=== PATIENT | male | born 1995 | race American Indian/Alaskan Native ===

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

== ENCOUNTER 2017-11-15 20:36 | Emergency (ER) | payer MEDICAID, OTHER ==
[2017-11-15 20:43] VITALS: BP 183/102
[2017-11-15] MEDS ORDERED: Ondansetron 4 MG Tab.DIS PO ONE (20:47)
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
[2017-11-15 21:28] LABS: CHLORIDE,CL 96 mmol/L (101-111); SODIUM,NA 135 mmol/L (135-145)
== END 2017-11-15 22:01 | disposition home or self-care (01) ==
LOC: DL.ED 20:36
DX: R10.13 Epigastric pain (principal); R11.10 Vomiting, unspecified; F17.210 Nicotine dependence, cigarettes, uncomplicated
CPT/HCPCS: 36415; 80053; 82150; 83690; 85025; 99283; A9270

== ENCOUNTER 2019-03-23 11:44 | Emergency (ER) | payer MEDICAID, OTHER ==
[2019-03-23] MEDS ORDERED: LORazepam 2 MG/ML Syringe IVPUSH ONE (12:06)
[2019-03-23] MEDS ORDERED: Nitroglycerin 0.4 MG Tab.SL SL ONE (12:13)
[2019-03-23 12:27] LABS: ANION GAP 19.2; CHLORIDE,CL 99 mmol/L (101-111); SODIUM,NA 137 mmol/L (135-145)
[2019-03-23] MEDS ORDERED: Potassium Chloride 10 MEQ Tab.ER PO ONE (12:30)
[2019-03-23] MEDS ORDERED: Metoprolol Tartrate 5 MG/5 ML SDV IVPUSH ONE ×2 (12:58→13:41)
[2019-03-23] MEDS ORDERED: amLODIPine 5 MG Tab PO ONE (15:00)
--- NOTE | 2019-03-23 16:51 | EDM.PDOC ---
Scribed by Mandi Parker 03/23/19 [id number] for Radha Carmona NP ED HPI GENERAL MEDICAL PROBLEM - General Chief Complaint: Chest Pain Stated Complaint: UNKNOWN-AMBULANCE Time Seen by Provider: 03/23/19 11:55 Source of Information: Reports: Patient, EMS, EMS Notes Reviewed, RN, RN Notes Reviewed History Limitations: Reports: No Limitations - History of Present Illness INITIAL COMMENTS - FREE TEXT/NARRATIVE: Patient presents to the ER by [facility] with complaint of chest pain and left shoulder pain this A.M. that started suddenly at 09:00 A.M as well as nausea. No medical history. He was given 3 baby aspirin and a sublingual nitroglycerin at 11:35 A.M. His pain is now a 2/10. His blood pressure was 154/104/ Onset: Today Duration: Constant Location: Reports: Chest Quality: Reports: Ache Severity: Moderate Improves with: Reports: None Worsens with: Reports: None Associated Symptoms: Reports: No Other Symptoms Chest Pain Score (Numeric/FACES): 2 - Related Data Allergies Allergy/AdvReac Type Severity Reaction Status Date / Time No Known Allergies Allergy Verified 11/15/17 20:43 Home Meds: Home Meds . [No Known Home Meds] 08/02/16 [History] Past Medical History - Past Health History Medical/Surgical History: Denies Medical/Surgical History HEENT History: Reports: None Cardiovascular History: Reports: None Respiratory History: Reports: None Gastrointestinal History: Reports: None Genitourinary History: Reports: None Musculoskeletal History: Reports: None Neurological History: Reports: None Psychiatric History: Reports: None Endocrine/Metabolic History: Reports: None Hematologic History: Reports: None Immunologic History: Reports: None Oncologic (Cancer) History: Reports: None Dermatologic History: Reports: None - Infectious Disease History Infectious Disease History: Reports: Chicken Pox Social & Family History - Family History Family Medical History: Noncontributory - Tobacco Use Smoking Status *Q: Former Smoker Used Tobacco, but Quit: Yes Month/Year Tobacco Last Used: 2017 - Caffeine Use Caffeine Use: Reports: Soda - Recreational Drug Use Recreational Drug Use: No ED ROS GENERAL - Review of Systems Review Of Systems: ROS reveals no pertinent complaints other than HPI. ED EXAM, GENERAL - Physical Exam Exam: See Below Exam Limited By: No Limitations General Appearance: Other (large obese male) Eye Exam: Bilateral Eye: EOMI, Normal Inspection, PERRL Ears: Normal External Exam, Normal Canal, Hearing Grossly Normal, Normal TMs Nose: Normal Inspection, Normal Mucosa, No Blood Throat/Mouth: Normal Inspection, Normal Lips, Normal Teeth, Normal Gums, Normal Oropharynx, Normal Voice, No Airway Compromise Head: Atraumatic, Normocephalic Neck: Other (large) Respiratory/Chest: No Respiratory Distress, Lungs Clear, Normal Breath Sounds, No Accessory Muscle Use, Chest Non-Tender Cardiovascular: Normal Peripheral Pulses, Regular Rate, Rhythm, No Edema, No Gallop, No JVD, No Murmur, No Rub GI/Abdominal: Normal Bowel Sounds, Soft, Non-Tender, No Organomegaly, No Distention, No Abnormal Bruit, No Mass Back Exam: Normal Inspection, Full Range of Motion, NT Extremities: Normal Inspection, Normal Range of Motion, Non-Tender, Normal Capillary Refill, No Pedal Edema Neurological: Alert, Oriented, CN II-XII Intact, Normal Cognition, Normal Gait, Normal Reflexes, No Motor/Sensory Deficits Psychiatric: Other (anxiety) Skin Exam: Warm, Dry, Intact, Normal Color, No Rash Course - Vital Signs Last Recorded V/S: Last Vital Signs Temp 36.9 C 03/23/19 13:26 Pulse 78 03/23/19 13:50 Resp 22 H 03/23/19 13:26 BP 165/98 H 03/23/19 15:13 Pulse Ox 98 03/23/19 13:26 - Orders/Labs/Meds Orders: Active Orders 24 hr Category Date Time Status EKG 12 Lead [EKG Documentation Completion] [RC] STAT Care 03/23/19 11:56 Active Labs: Laboratory Tests 03/23/19 03/23/19 03/23/19 Range/Units 11:58 11:58 11:58 WBC 8.2 (5.0-10.0) 10^3/uL RBC 5.42 (4.6-6.2) 10^6/uL Hgb 17.3 D (14.0-18.0) g/dL Hct 49.9 (40.0-54.0) % MCV 92.1 (80-100) fL MCH 31.9 (27.0-34.0) pg MCHC 34.7 (33.0-35.0) g/dL Plt Count 281 (150-450) 10^3/uL D-Dimer, Quantitative < 100 (0-400) ng/mL Sodium 137 (135-145) mmol/L Potassium 3.2 L (3.6-5.0) mmol/L Chloride 99 L (101-111) mmol/L Carbon Dioxide 22.0 (21.0-31.0) mmol/L Anion Gap 19.2 BUN 6 L (7-18) mg/dL Creatinine 0.9 (0.6-1.3) mg/dL Est Cr Clr Drug Dosing 137.12 mL/min Estimated GFR (MDRD) > 60 BUN/Creatinine Ratio 6.66 Glucose 115 H (74-105) mg/dL Calcium 9.7 (8.4-10.2) mg/dl Total Bilirubin 1.4 H (0.2-1.0) mg/dL AST 100 H (10-42) IU/L ALT 67 H (10-60) IU/L Alkaline Phosphatase 114 (42-121) IU/L Troponin I 0.00 (0.00-0.08) ng/mL Total Protein 9.0 H (6.7-8.2) g/dl Albumin 4.1 (3.2-5.5) g/dl Globulin 4.9 Albumin/Globulin Ratio 0.84 Urine Color (YELLOW) Urine Appearance (CLEAR) Urine pH (5.0-9.0) Ur Specific [place] (1.005-1.030) Urine Protein (NEGATIVE) Urine Glucose (UA) (NEGATIVE) Urine Ketones (NEGATIVE) Urine Occult Blood (NEGATIVE) Urine Nitrite (NEGATIVE) Urine Bilirubin (NEGATIVE) Urine Urobilinogen (0.2-1.0) mg/dL Ur Leukocyte Esterase (NEGATIVE) Urine RBC /HPF Urine WBC (0-5/HPF) /HPF Ur Epithelial Cells (NOT SEEN) /HPF Urine Bacteria (0-FEW/HPF) /HPF 03/23/19 03/23/19 Range/Units 12:58 16:13 WBC (5.0-10.0) 10^3/uL RBC (4.6-6.2) 10^6/uL Hgb (14.0-18.0) g/dL Hct (40.0-54.0) % MCV (80-100) fL MCH (27.0-34.0) pg MCHC (33.0-35.0) g/dL Plt Count (150-450) 10^3/uL D-Dimer, Quantitative (0-400) ng/mL Sodium (135-145) mmol/L Potassium (3.6-5.0) mmol/L Chloride (101-111) mmol/L Carbon Dioxide (21.0-31.0) mmol/L Anion Gap BUN (7-18) mg/dL Creatinine (0.6-1.3) mg/dL Est Cr Clr Drug Dosing mL/min Estimated GFR (MDRD) BUN/Creatinine Ratio Glucose (74-105) mg/dL Calcium (8.4-10.2) mg/dl Total Bilirubin (0.2-1.0) mg/dL AST (10-42) IU/L ALT (10-60) IU/L Alkaline Phosphatase (42-121) IU/L Troponin I 0.00 (0.00-0.08) ng/mL Total Protein (6.7-8.2) g/dl Albumin (3.2-5.5) g/dl Globulin Albumin/Globulin Ratio Urine Color Dark yellow (YELLOW) Urine Appearance Clear (CLEAR) Urine pH 8.5 (5.0-9.0) Ur Specific [place] 1.020 (1.005-1.030) Urine Protein 30 H (NEGATIVE) Urine Glucose (UA) Negative (NEGATIVE) Urine Ketones Negative (NEGATIVE) Urine Occult Blood Negative (NEGATIVE) Urine Nitrite Negative (NEGATIVE) Urine Bilirubin Small H (NEGATIVE) Urine Urobilinogen 4.0 H (0.2-1.0) mg/dL Ur Leukocyte Esterase Negative (NEGATIVE) Urine RBC 0-5 /HPF Urine WBC Not seen (0-5/HPF) /HPF Ur Epithelial Cells Not seen (NOT SEEN) /HPF Urine Bacteria Not seen (0-FEW/HPF) /HPF Meds: Medications Discontinued Medications Generic Name Dose Route Start Last Admin Trade Name Freq PRN Reason Stop Dose Admin Amlodipine Besylate 5 mg 03/23/19 15:00 03/23/19 15:13 Norvasc PO 03/23/19 15:01 5 mg ONETIME ONE Administration Lorazepam 0.5 mg 03/23/19 12:06 03/23/19 12:11 Ativan IVPUSH 03/23/19 12:07 0.5 mg ONETIME ONE Administration Metoprolol Tartrate 5 mg 03/23/19 12:58 03/23/19 13:05 Lopressor IVPUSH 03/23/19 12:59 5 mg ONETIME ONE Administration Metoprolol Tartrate 5 mg 03/23/19 13:41 03/23/19 13:50 Lopressor IVPUSH 03/23/19 13:42 5 mg ONETIME ONE Administration Nitroglycerin 0.4 mg 03/23/19 12:13 03/23/19 12:16 Nitrostat SL 03/23/19 12:14 0.4 mg ONETIME ONE Administration Potassium Chloride 20 meq 03/23/19 12:30 03/23/19 12:39 Klor-Con 10 PO 03/23/19 12:31 20 meq ONETIME ONE Administration - Radiology Interpretation Free Text/Narrative:: Chest x-ray: Normal. See rad report. - Re-Assessments/Exams Free Text/Narrative Re-Assessment/Exam: 03/23/19 16:45 24 year old male very HTN 197/110 with left mid chest pain and very anxious. EKG NSR non ST elevation. Recieved aspirin by EMS and NTG SL. CP 8/. Given ativian and additional ntg sl and brought BP down 160's syst and more calm with CP 2/10. Gave an additional ntg; so 3 total. CP resolved. BP remained 150-160's syst. Gave total of 10 mg Lopressor and Norvasc po. Troponin x2 4 hours apart negative; D-dimer neg, CMP with elevated LFT's and bili; no abdominal pain with palpation. . Chest Xray normal. This obese male with no hx of CVD or known HTN or DM will f/u with his PCP. Given Rx for metoprolol 25 mg bid and norvasc 5 mg po daily. His BP 140's and he is feeling much better Departure - Departure Time of Disposition: 16:50 Disposition: Home, Self-Care 01 Preliminary Cause of *Q: Sepsis & Multi System Organ Failure Condition: Good Clinical Impression: Obesity (BMI 30-39.9) Hypertension Qualifiers: Hypertension type: essential hypertension Qualified Code(s): I10 - Essential ( primary) hypertension Chest pain Qualifiers: Chest pain type: other chest pain Qualified Code(s): R07.89 - Other chest pain ; R07.8 - Other chest pain Forms: ED Department Discharge Additional Instructions: Make appt with your Primary Care next week. High blood pressure is most likely cause of your chest pain. Negative cardiac work for heart attack presently. We need to keep your blood pressure down with two medications Metoprolol twice a day and amlodipine once a day. You have been given prescriptions. Goal for blood pressure is 110-140/60-80 Have a sleep study done and ordered by your Primary care. If CP returns then return to the ER. - My Orders Last 24 Hours: My Active Orders 03/23/19 11:56 EKG 12 Lead [EKG Documentation Completion] [RC] STAT - Assessment/Plan Last 24 Hours: My Active Orders 03/23/19 11:56 EKG 12 Lead [EKG Documentation Completion] [RC] STAT I have read and agree with the documentation that has been completed regarding this visit. By signing this record, I attest that the documentation was completed in my physical presence and is an accurate record of the encounter.
[2019-03-23 16:56] VITALS: BP 147/98; PULSE 85
== END 2019-03-23 17:11 | disposition home or self-care (01) ==
LOC: DL.ED 11:44
DX: R07.89 Other chest pain (principal); I10 Essential (primary) hypertension; E66.9 Obesity, unspecified; Z87.891 Personal history of nicotine dependence; Z68.35 Body mass index [BMI] 35.0-35.9, adult
CPT/HCPCS: 36415; 71046; 80053; 81001; 84484; 85027; 85379; 93005; 96374; 96375; 96376; 99285; A9270; J2060; J3490

== ENCOUNTER 2019-05-11 14:21 | Emergency (ER) | payer MEDICAID ==
[2019-05-11 14:38] VITALS: BP 164/96
[2019-05-11] MEDS ORDERED: Albuterol 6.7 GM Inhaler INH ONE (14:38)
[2019-05-11 15:05] VITALS: PULSE 77
[2019-05-11 15:15] LABS: ANION GAP 14.5; CHLORIDE,CL 100 mmol/L (101-111); SODIUM,NA 134 mmol/L (135-145)
--- NOTE | 2019-05-11 15:17 | EDM.PDOC ---
Scribed by Mandi Parker 05/11/19 1515 for Jhon Dodge MD ED HPI GENERAL MEDICAL PROBLEM - General Chief Complaint: Chest Pain Stated Complaint: CHEST TIGHTNESS/LEFT PAIN Time Seen by Provider: 05/11/19 14:34 Source of Information: Reports: Patient, RN, RN Notes Reviewed History Limitations: Reports: No Limitations - History of Present Illness INITIAL COMMENTS - FREE TEXT/NARRATIVE: Patient presents to ER with two day history of feeling like needles stabbing in his chest when he is outside. There is also tingling in the chest as well as sharp pain in left chest when he abducts his left arm. He states he is shaky, but is apparently nervous and restless on triage. He is very short of breath he states and has dry cough. Denies edema or sputum production. 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 Onset Date: 05/09/19 Duration: Getting Worse Location: Reports: Chest Quality: Reports: Ache Severity: Moderate Improves with: Reports: None Worsens with: Reports: None Associated Symptoms: Reports: No Other Symptoms Left Chest Pain Score (Numeric/FACES): 3 - Related Data Allergies Allergy/AdvReac Type Severity Reaction Status Date / Time No Known Allergies Allergy Verified 05/11/19 14:34 Home Meds: Home Meds . [No Known Home Meds] 08/02/16 [History] Past Medical History - Past Health History Medical/Surgical History: Denies Medical/Surgical History HEENT History: Reports: None Cardiovascular History: Reports: None Respiratory History: Reports: None Gastrointestinal History: Reports: None Genitourinary History: Reports: None Musculoskeletal History: Reports: None Neurological History: Reports: None Psychiatric History: Reports: None Endocrine/Metabolic History: Reports: None Hematologic History: Reports: None Immunologic History: Reports: None Oncologic (Cancer) History: Reports: None Dermatologic History: Reports: None - Infectious Disease History Infectious Disease History: Reports: Chicken Pox Social & Family History - Family History Family Medical History: Noncontributory - Caffeine Use Caffeine Use: Reports: Soda - Living Situation & Occupation Living situation: Reports: with Family Occupation: Employed ED ROS GENERAL - Review of Systems Review Of Systems: Comprehensive ROS is negative, except as noted in HPI. ED EXAM, GENERAL - Physical Exam Exam: See Below Exam Limited By: No Limitations General Appearance: Alert, WD/WN, No Apparent Distress, Anxious, Obese Eye Exam: Bilateral Eye: Normal Inspection Nose: Normal Inspection, Normal Mucosa, No Blood Throat/Mouth: Normal Inspection, Normal Lips, Normal Teeth, Normal Gums, Normal Oropharynx, Normal Voice, No Airway Compromise Head: Atraumatic, Normocephalic Neck: Normal Inspection, Supple, Non-Tender, Full Range of Motion. No: Lymphadenopathy (L), Lymphadenopathy (R) Respiratory/Chest: No Respiratory Distress, Lungs Clear, Normal Breath Sounds, No Accessory Muscle Use, Chest Non-Tender. No: Crackles, Rales, Rhonchi, Wheezing, Stridor Cardiovascular: Normal Peripheral Pulses, Regular Rate, Rhythm, No Edema GI/Abdominal: Normal Bowel Sounds, Soft, Non-Tender, No Organomegaly, No Distention, No Abnormal Bruit, No Mass Back Exam: Normal Inspection Extremities: Normal Inspection, Normal Range of Motion, Non-Tender, Normal Capillary Refill, No Pedal Edema Neurological: Alert, Oriented, Normal Cognition, Normal Gait, No Motor/Sensory Deficits Psychiatric: Anxious Skin Exam: Warm, Dry EKG INTERPRETATION EKG Date: 05/11/19 Time: 14:40 Rhythm: Other (sinus rhythm) Rate (Beats/Min): 66 [place]: Normal P-Wave: Present QRS: Normal ST-T: Normal QT: Normal Comparison: NA - No Prior EKG Course - Vital Signs Last Recorded V/S: Last Vital Signs Temp 97.9 F 05/11/19 14:34 Pulse 77 05/11/19 15:03 Resp 16 05/11/19 14:34 BP 164/96 H 05/11/19 14:34 Pulse Ox 100 05/11/19 14:34 - Orders/Labs/Meds Orders: Active Orders 24 hr Category Date Time Status EKG 12 Lead [EKG Documentation Completion] [RC] STAT Care 05/11/19 14:38 Active RT Post Treatment Assessment [RC] Click to Edit Care 05/11/19 14:39 Active RT Pre-Treatment Assessment [RC] Click to Edit Care 05/11/19 14:39 Active CBC WITH AUTO DIFF [HEME] Stat Lab 05/11/19 14:47 Results COMPREHENSIVE METABOLIC PN,CMP [CHEM] Stat Lab 05/11/19 14:47 Received D Dimer [D-DIMER QUANTITATIVE] [COAG] Stat Lab 05/11/19 14:47 Received MANUAL DIFFERENTIAL QA/NC [HEME] Stat Lab 05/11/19 14:47 Results TROPONIN I [CHEM] Stat Lab 05/11/19 14:47 Received RT Metered Dose Inhaler Treatment [RESPCARE] Stat Oth 05/11/19 15:06 Active Labs: Laboratory Tests 05/11/19 Range/Units 14:47 WBC 8.7 (5.0-10.0) 10^3/uL RBC 4.93 (4.6-6.2) 10^6/uL Hgb 15.8 D (14.0-18.0) g/dL Hct 45.9 (40.0-54.0) % MCV 93.1 (80-100) fL MCH 32.0 (27.0-34.0) pg MCHC 34.4 (33.0-35.0) g/dL Plt Count 313 (150-450) 10^3/uL Neut % (Auto) 60.7 (42.2-75.2) % Lymph % (Auto) 31.0 (20.5-50.1) % [place] % (Auto) 6.0 (2-8) % Eos % (Auto) 1.7 (1.0-3.0) % Baso % (Auto) 0.6 (0.0-1.0) % Add Manual Diff Yes Meds: Medications Discontinued Medications Generic Name Dose Route Start Last Admin Trade Name Freq PRN Reason Stop Dose Admin Albuterol 6.7 gm 05/11/19 14:38 05/11/19 14:57 Proventil Hfa INH 05/11/19 14:39 2 puff ONETIME ONE Administration - Radiology Interpretation Free Text/Narrative:: XR Chest: no acute process, see Rad. report. Departure - Departure Time of Disposition: 15:14 Disposition: Home, Self-Care 01 Condition: Good Clinical Impression: Cold induced bronchospasm - Discharge Information *PRESCRIPTION DRUG MONITORING PROGRAM REVIEWED*: No *COPY OF PRESCRIPTION DRUG MONITORING REPORT IN PATIENT KIRSTEN: No Instructions: Bronchospasm, Adult Forms: ED Department Discharge Additional Instructions: Use Albuterol inhaler with spacer: 2 puffs every four hours as needed. Avoid cold air exposure as much as possible. Follow up in clinic if needed. - My Orders Last 24 Hours: My Active Orders 05/11/19 14:38 EKG 12 Lead [EKG Documentation Completion] [RC] STAT 05/11/19 14:39 RT Post Treatment Assessment [RC] Click to Edit RT Pre-Treatment Assessment [RC] Click to Edit 05/11/19 14:47 CBC WITH AUTO DIFF [HEME] Stat COMPREHENSIVE METABOLIC PN,CMP [CHEM] Stat D Dimer [D-DIMER QUANTITATIVE] [COAG] Stat MANUAL DIFFERENTIAL QA/NC [HEME] Stat TROPONIN I [CHEM] Stat 05/11/19 15:06 RT Metered Dose Inhaler Treatment [RESPCARE] Stat - Assessment/Plan Last 24 Hours: My Active Orders 05/11/19 14:38 EKG 12 Lead [EKG Documentation Completion] [RC] STAT 05/11/19 14:39 RT Post Treatment Assessment [RC] Click to Edit RT Pre-Treatment Assessment [RC] Click to Edit 05/11/19 14:47 CBC WITH AUTO DIFF [HEME] Stat COMPREHENSIVE METABOLIC PN,CMP [CHEM] Stat D Dimer [D-DIMER QUANTITATIVE] [COAG] Stat MANUAL DIFFERENTIAL QA/NC [HEME] Stat TROPONIN I [CHEM] Stat 05/11/19 15:06 RT Metered Dose Inhaler Treatment [RESPCARE] Stat I have read and agree with the documentation that has been completed regarding this visit. By signing this record, I attest that the documentation was completed in my physical presence and is an accurate record of the encounter.
== END 2019-05-11 15:25 | disposition home or self-care (01) ==
LOC: DL.ED 14:21
DX: J98.01 Acute bronchospasm (principal)
CPT/HCPCS: 36415; 71046; 80053; 84484; 85025; 85379; 93005; 94640; 99285; A9270

== ENCOUNTER 2019-09-17 14:58 | Inpatient (IN) | payer MEDICAID, OTHER ==
--- NOTE | 2019-09-17 15:53 | EDM.PDOC ---
ED HPI GENERAL MEDICAL PROBLEM - General Chief Complaint: Lower Extremity Injury/Pain Stated Complaint: AMBULANCE Time Seen by Provider: 09/17/19 15:35 Source of Information: Reports: Patient History Limitations: Reports: No Limitations - History of Present Illness INITIAL COMMENTS - FREE TEXT/NARRATIVE: This 24 yo male patient was sent to the ED from the [facility] due to bilateral lower extremity weakness and numbness. The patient reports his symptoms started about 5 days ago first in his left leg, then in both knees. The patient reports he has been having increased difficulties moving his legs and has been having increased numbness and tingling in his lower extremities. The patient reports he has not had any recent trauma or injuries to his back or lower extremities. The patient admits to drinking alcohol, but denies using any drugs. The patient has a limited medical history including acne (on Minocycline and Tretinoin) and peripheral neuropathy (diagnosed 3 years ago, but patient reports those symptoms went away within 1-2 weeks of his visit in 2017). The patient denies any family history of similar symptoms. The patient reports he has not taken anything to make his symptoms better. The patient reports his symptoms have gotten so bad that he has been crawling around his home. The patient reports it took him 5-10 minutes to get to the vehicle in order to get into the clinic today. Duration: Day(s): (5), Constant, Getting Worse Location: Reports: Lower Extremity, Left, Lower Extremity, Right Quality: Reports: Ache, Dull, Other (weakness) Severity: Severe Improves with: Reports: None Worsens with: Reports: None Context: Reports: Other Associated Symptoms: Reports: Other Bilateral Lower Leg Pain Score (Numeric/FACES): 8 - Related Data Allergies Allergy/AdvReac Type Severity Reaction Status Date / Time No Known Allergies Allergy Verified 09/17/19 15:10 Home Meds: Home Meds Minocycline [Minocin] 100 mg PO BID 09/17/19 [History] Tretinoin 20 gm TP BEDTIME 09/17/19 [History] Past Medical History - Past Health History Medical/Surgical History: Denies Medical/Surgical History HEENT History: Reports: None Cardiovascular History: Reports: Hypertension Respiratory History: Reports: None Gastrointestinal History: Reports: None Genitourinary History: Reports: None Musculoskeletal History: Reports: None Neurological History: Reports: None Psychiatric History: Reports: None Endocrine/Metabolic History: Reports: None Hematologic History: Reports: None Immunologic History: Reports: None Oncologic (Cancer) History: Reports: None Dermatologic History: Reports: Other (See Below) Other Dermatologic History: acne - Infectious Disease History Infectious Disease History: Reports: Chicken Pox Social & Family History - Family History Family Medical History: Noncontributory - Tobacco Use Smoking Status *Q: Former Smoker Used Tobacco, but Quit: Yes Month/Year Tobacco Last Used: 2017 - Caffeine Use Caffeine Use: Reports: Soda - Alcohol Use Days Per Week of Alcohol Use: 5 Number of Drinks Per Day: 5 Total Drinks Per Week: 25 - Recreational Drug Use Recreational Drug Use: No - Living Situation & Occupation Living situation: Reports: with Family Occupation: Employed Review of Systems - Review of Systems Review Of Systems: Comprehensive ROS is negative, except as noted in HPI. ED EXAM, GENERAL - Physical Exam Exam: See Below Exam Limited By: No Limitations General Appearance: Alert, WD/WN, Moderate Distress, Other (headlice) Eye Exam: Bilateral Eye: EOMI, Normal Inspection, PERRL Ears: Normal External Exam, Normal Canal, Hearing Grossly Normal, Normal TMs Nose: Normal Inspection, Normal Mucosa, No Blood Throat/Mouth: Normal Inspection, Normal Lips, Normal Teeth, Normal Gums, Normal Oropharynx, Normal Voice, No Airway Compromise Head: Other (lice apparent in the patient's hair, acne) Neck: Normal Inspection, Supple, Non-Tender, Full Range of Motion Respiratory/Chest: No Respiratory Distress, Lungs Clear, Normal Breath Sounds, No Accessory Muscle Use, Chest Non-Tender Cardiovascular: Normal Peripheral Pulses, Regular Rate, Rhythm, No Edema, No Gallop, No JVD, No Murmur, No Rub GI/Abdominal: Normal Bowel Sounds, Soft, Non-Tender, No Organomegaly, No Distention, No Abnormal Bruit, No Mass (Male) Exam: Deferred Rectal (Males) Exam: Deferred Back Exam: Normal Inspection, Full Range of Motion, NT Extremities: Other (The patient had difficulties lifting his lower extremities off the hospital bed. The patient denied any back pain with motion of his legs, but reported his legs hurt when he lifted them off the bed. The patient reports feeling in his lower extremities. Pulses were present and equal. ) Neurological: Alert, Oriented, Normal Cognition, Abnormal Gait (The patient had difficulties just moving his lower extremities and was not asked to walk.) Psychiatric: Normal Affect, Normal Mood Skin Exam: Warm, Dry, Intact, Normal Color, No Rash Lymphatic: No Adenopathy Course - Vital Signs Last Recorded V/S: Last Vital Signs Temp 36.8 C 09/17/19 16:34 Pulse 126 H 09/17/19 16:34 Resp 18 09/17/19 16:34 BP 143/57 H 09/17/19 16:34 Pulse Ox 99 09/17/19 16:34 - Orders/Labs/Meds Orders: Active Orders 24 hr Category Date Time Status Admission Diagnosis [ADT] Stat ADT 09/17/19 17:35 Ordered Admission Status [Patient Status] [ADT] Routine ADT 09/17/19 17:35 Ordered Knee 1V or 2V Lt [CR] Urgent Exams 09/17/19 15:59 Ordered Knee 1V or 2V Rt [CR] Urgent Exams 09/17/19 15:59 Ordered CPK [CREATINE KINASE,CK] [CHEM] Stat Lab 09/17/19 17:32 Ordered CULTURE BLOOD [BC] Stat Lab 09/17/19 15:38 Ordered DRUG SCREEN URINE BIORAD [URCHEM] Stat Lab 09/17/19 15:38 Ordered UA RFX HARISH AND CULT IF INDIC [URIN] Urgent Lab 09/17/19 15:38 Ordered Potassium Chloride [KCl 10 MEQ in Water 100 ML] 10 meq Med 09/17/19 16:42 Ordered Premix Bag 1 bag IV ONETIME Sodium Chloride 0.9% [Normal Saline] 1,000 ml Med 09/17/19 16:42 Ordered IV .BOLUS Medication Orders Potassium Chloride 10 meq/ (Premix) 100 mls @ 100 mls/hr IV ONETIME ONE Stop: 09/17/19 17:41 Last Admin: 09/17/19 16:53 Dose: 100 mls/hr Sodium Chloride (Normal Saline) 1,000 mls @ 999 mls/hr IV .BOLUS ONE Stop: 09/17/19 17:42 Last Admin: 09/17/19 16:53 Dose: 999 mls/hr Labs: Laboratory Tests 09/17/19 09/17/19 09/17/19 Range/Units 15:51 15:51 15:51 WBC 21.8 H (5.0-10.0) 10^3/uL RBC 3.35 L (4.6-6.2) 10^6/uL Hgb 11.8 L D (14.0-18.0) g/dL Hct 33.1 L (40.0-54.0) % MCV 98.8 D (80-100) fL MCH 35.2 H (27.0-34.0) pg MCHC 35.6 H (33.0-35.0) g/dL Plt Count 301 (150-450) 10^3/uL Neut % (Auto) 75.9 H (42.2-75.2) % Lymph % (Auto) 10.8 L (20.5-50.1) % [place] % (Auto) 7.1 (2-8) % Eos % (Auto) 5.9 H (1.0-3.0) % Baso % (Auto) 0.3 (0.0-1.0) % Add Manual Diff Yes Neutrophils % (Manual) 62 (42-75) % Band Neutrophils % 8 % Lymphocytes % (Manual) 15 L (20-50) % Monocytes % (Manual) 5 (2-8) % Eosinophils % (Manual) 9 H (1-3) % Metamyelocytes % 1 Toxic Granulation 1+ slight Anisocytosis 1+ slight Sodium (136-145) mmol/L Potassium (3.5-5.1) mmol/L Chloride (98-107) mmol/L Carbon Dioxide (21-32) mmol/L Anion Gap (7-13) mEq/L BUN (7-18) mg/dL Creatinine (0.70-1.30) mg/dL Est Cr Clr Drug Dosing Estimated GFR (MDRD) BUN/Creatinine Ratio (No establ ref range) Glucose (74-99) mg/dL Lactic Acid 5.3 H* (0.4-2.0) mmol/L Uric Acid 7.5 H (3.5-7.2) mg/dL Calcium (8.5-10.1) mg/dL Magnesium 1.7 L (1.8-2.4) mg/dL Total Bilirubin (0.2-1.0) mg/dL AST (15-37) U/L ALT (16-63) U/L Alkaline Phosphatase (46-116) U/L Total Protein (6.4-8.2) g/dL Albumin (3.4-5.0) g/dL Globulin Albumin/Globulin Ratio TSH, Ultra Sensitive 1.31 (0.36-3.74) uIU/mL Ethyl Alcohol 15 (0) mg/dL 09/17/19 Range/Units 15:51 WBC (5.0-10.0) 10^3/uL RBC (4.6-6.2) 10^6/uL Hgb (14.0-18.0) g/dL Hct (40.0-54.0) % MCV (80-100) fL MCH (27.0-34.0) pg MCHC (33.0-35.0) g/dL Plt Count (150-450) 10^3/uL Neut % (Auto) (42.2-75.2) % Lymph % (Auto) (20.5-50.1) % [place] % (Auto) (2-8) % Eos % (Auto) (1.0-3.0) % Baso % (Auto) (0.0-1.0) % Add Manual Diff Neutrophils % (Manual) (42-75) % Band Neutrophils % % Lymphocytes % (Manual) (20-50) % Monocytes % (Manual) (2-8) % Eosinophils % (Manual) (1-3) % Metamyelocytes % Toxic Granulation Anisocytosis Sodium 127 L (136-145) mmol/L Potassium 2.7 L (3.5-5.1) mmol/L Chloride 87 L (98-107) mmol/L Carbon Dioxide 28 (21-32) mmol/L Anion Gap 14.7 H (7-13) mEq/L BUN 5 L (7-18) mg/dL Creatinine 0.88 (0.70-1.30) mg/dL Est Cr Clr Drug Dosing TNP Estimated GFR (MDRD) > 60 BUN/Creatinine Ratio 5.7 (No establ ref range) Glucose 128 H (74-99) mg/dL Lactic Acid (0.4-2.0) mmol/L Uric Acid (3.5-7.2) mg/dL Calcium 8.2 L (8.5-10.1) mg/dL Magnesium (1.8-2.4) mg/dL Total Bilirubin 3.0 H (0.2-1.0) mg/dL AST 72 H (15-37) U/L ALT 28 (16-63) U/L Alkaline Phosphatase 126 H (46-116) U/L Total Protein 8.7 H (6.4-8.2) g/dL Albumin 3.0 L (3.4-5.0) g/dL Globulin 5.7 Albumin/Globulin Ratio 0.53 TSH, Ultra Sensitive (0.36-3.74) uIU/mL Ethyl Alcohol (0) mg/dL Meds: Medications Generic Name Dose Route Start Last Admin Trade Name Freq PRN Reason Stop Dose Admin Potassium Chloride 10 meq/ 100 mls @ 100 mls/hr 09/17/19 16:42 09/17/19 16:53 Premix IV 09/17/19 17:41 100 mls/hr ONETIME ONE Administration Sodium Chloride 1,000 mls @ 999 mls/hr 09/17/19 16:42 09/17/19 16:53 Normal Saline IV 09/17/19 17:42 999 mls/hr .BOLUS ONE Administration Departure - Departure Time of Disposition: 17:40 Disposition: Admitted As Inpatient 68 Condition: Poor Clinical Impression: Hypokalemia, Hyponatremia - Discharge Information *PRESCRIPTION DRUG MONITORING PROGRAM REVIEWED*: Not Applicable *COPY OF PRESCRIPTION DRUG MONITORING REPORT IN PATIENT KIRSTEN: Not Applicable Care Plan Goals: Discussed the patient's history, examination, lab and x-ray results with Dr. Serna. Dr. Serna accepted the patient for continued evaluation and treatment here at [facility]. Sepsis Event Note - Evaluation Sepsis Screening Result: No Definite Risk - Focused Exam Vital Signs: Vital Signs Temp Pulse Resp BP Pulse Ox 09/17/19 16:34 36.8 C 126 H 18 143/57 H 99 09/17/19 15:10 36.3 C 121 H 16 142/61 H 100 Date Exam was Performed: 09/17/19 Time Exam was Performed: 17:39 - My Orders Last 24 Hours: My Active Orders 09/17/19 15:38 CULTURE BLOOD [BC] Stat DRUG SCREEN URINE BIORAD [URCHEM] Stat UA RFX HARISH AND CULT IF INDIC [URIN] Urgent 09/17/19 15:59 Knee 1V or 2V Lt [CR] Urgent Knee 1V or 2V Rt [CR] Urgent 09/17/19 16:42 Potassium Chloride [KCl 10 MEQ in Water 100 ML] 10 meq Premix Bag 1 bag IV ONETIME Sodium Chloride 0.9% [Normal Saline] 1,000 ml IV .BOLUS 09/17/19 17:32 CPK [CREATINE KINASE,CK] [CHEM] Stat 09/17/19 17:35 Admission Diagnosis [ADT] Stat Admission Status [Patient Status] [ADT] Routine - Assessment/Plan Last 24 Hours: My Active Orders 09/17/19 15:38 CULTURE BLOOD [BC] Stat DRUG SCREEN URINE BIORAD [URCHEM] Stat UA RFX HARISH AND CULT IF INDIC [URIN] Urgent 09/17/19 15:59 Knee 1V or 2V Lt [CR] Urgent Knee 1V or 2V Rt [CR] Urgent 09/17/19 16:42 Potassium Chloride [KCl 10 MEQ in Water 100 ML] 10 meq Premix Bag 1 bag IV ONETIME Sodium Chloride 0.9% [Normal Saline] 1,000 ml IV .BOLUS 09/17/19 17:32 CPK [CREATINE KINASE,CK] [CHEM] Stat 09/17/19 17:35 Admission Diagnosis [ADT] Stat Admission Status [Patient Status] [ADT] Routine
[2019-09-17 16:24] LABS: ANION GAP 14.7 mEq/L (7-13); CHLORIDE,CL 87 mmol/L (98-107); SODIUM,NA 127 mmol/L (136-145)
[2019-09-17] MEDS ORDERED: Potassium Chloride 10 MEQ in Premix Bag 1 BAG IV ONE (16:42)
[2019-09-17] MEDS ORDERED: Sodium Chloride 0.9% 1,000 ML IV ONE (16:42)
[2019-09-17] MEDS ORDERED: Ondansetron 4 MG Tab.DIS PO PRN (18:21)
[2019-09-17] MEDS ORDERED: Sodium Chloride 0.9% 10 ML Syringe FLUSH PRN (18:21)
[2019-09-17] MEDS ORDERED: Morphine 2 MG/ML Syringe IVPUSH PRN (18:21)
[2019-09-17] MEDS ORDERED: Ibuprofen 400 MG Tab PO PRN (18:21)
[2019-09-17] MEDS ORDERED: Zolpidem 5 MG Tab PO PRN (18:21)
[2019-09-17] MEDS ORDERED: oxyCODONE 5 MG Tab PO PRN (18:21)
[2019-09-17] MEDS ORDERED: Ondansetron 4 MG/2 ML SDV IVPUSH PRN (18:21)
--- NOTE | 2019-09-17 18:33 | PCM.HP ---
H&P History of Present Illness - General Date of Service: 09/17/19 Admit Problem/Dx: Admission Diagnosis/Problem Admission Diagnosis/Problem Hypokalemia Source of Information: Patient, Provider (ER) - History of Present Illness Initial Comments - Free Text/Narative: 24-year-old gentleman with a history of acne, in the history there is also a few days episode when he had numbness in the lower extremities and was given the diagnosis of peripheral neuropathy. According to patient that resolved within a few days. He has been drinking about 16-32 ounces of "Juice" daily. He says it is about 9 % alcohol content. He has been drinking about half a gallon of water because he heard that that is good for him. He denies using drugs. No smoking. In the past few days prior to admission the patient has been experiencing increasing lower extremity weakness, mostly in the proximal muscles. More and more difficulty standing and walking. There has been associated knee pain, started mostly on the right side than on the left side. No associated swelling, redness. No trauma. He has muscle pain when has to lift the leg or move significantly. No fever, no sick contact. No chills. No shortness of breath, did not experience upper extremity weakness. No seizure No urine, bowel incontinence, no diarrhea Has been only taking acne medication with minocycline and tretinoin. Came to emergency room with increasing complaints of weakness. Bilateral Lower Leg Pain Score (Numeric/FACES): 8 - Related Data Allergies/Adverse Reactions: Allergies Allergy/AdvReac Type Severity Reaction Status Date / Time No Known Allergies Allergy Verified 09/17/19 15:10 Home Medications: Home Meds Minocycline [Minocin] 100 mg PO BID 09/17/19 [History] Tretinoin 20 gm TP BEDTIME 09/17/19 [History] Past Medical History - Past Health History Medical/Surgical History: Denies Medical/Surgical History HEENT History: Reports: None Cardiovascular History: Reports: Hypertension Respiratory History: Reports: None Gastrointestinal History: Reports: None Genitourinary History: Reports: None Musculoskeletal History: Reports: None Neurological History: Reports: None Psychiatric History: Reports: Addiction Endocrine/Metabolic History: Reports: Obesity/BMI 30+ Hematologic History: Reports: None Immunologic History: Reports: None Oncologic (Cancer) History: Reports: None Dermatologic History: Reports: Other (See Below) Other Dermatologic History: acne - Infectious Disease History Infectious Disease History: Reports: Chicken Pox Social & Family History - Family History Family Medical History: Noncontributory - Tobacco Use Smoking Status *Q: Former Smoker Used Tobacco, but Quit: Yes Month/Year Tobacco Last Used: 2017 - Caffeine Use Caffeine Use: Reports: Soda - Alcohol Use Days Per Week of Alcohol Use: 5 Number of Drinks Per Day: 5 Total Drinks Per Week: 25 - Recreational Drug Use Recreational Drug Use: No - Living Situation & Occupation Living situation: Reports: with Family Occupation: Employed H&P Review of Systems - Review of Systems: Review Of Systems: See Below General: Reports: Weakness (Lower extremities). Denies: Fever, Chills, Malaise , Night Sweats Pulmonary: Denies: Shortness of Breath Cardiovascular: Denies: Chest Pain, Palpitations Gastrointestinal: Denies: Abdominal Pain, Constipation, Diarrhea Genitourinary: Denies: Dysuria Psychiatric: Denies: Confusion Neurological: Reports: Difficulty Walking (Due to weakness and knee pain), Gait Disturbance (Due to weakness). Denies: Dizziness, Trouble Speaking Exam - Exam Exam: See Below - Vital Signs Vital Signs: Last Vital Signs Temp 98.3 F 09/17/19 16:34 Pulse 126 H 09/17/19 16:34 Resp 18 09/17/19 16:34 BP 143/57 H 09/17/19 16:34 Pulse Ox 99 09/17/19 16:34 Weight: 229 lb 9.6 oz - Exam General: Alert, Oriented Neck: Supple Lungs: Clear to Auscultation, Normal Respiratory Effort Cardiovascular: Regular Rate, Regular Rhythm GI/Abdominal Exam: Normal Bowel Sounds, Soft, Non-Tender. No: Hepatomegaly Extremities: No Pedal Edema Skin: Warm, Dry Neuro Extensive - Mental Status: Alert, Oriented x3, Normal Mood/Affect Neuro Extensive - Motor, Sensory, Reflexes: Abnormal Motor (Able to lift bilateral lower extremities against gravity). No: Abnormal Reflexes, Dysarthria , Receptive Aphasia, Expressive Aphasia, Abnormal Finger to Nose, Abnormal Light Touch Psychiatric: Alert, Normal Affect, Normal Mood - Patient Data Lab Results Last 24 hrs: Laboratory Results - last 24 hr 09/17/19 09/17/19 09/17/19 Range/Units 15:51 15:51 15:51 WBC 21.8 H (5.0-10.0) 10^3/uL RBC 3.35 L (4.6-6.2) 10^6/uL Hgb 11.8 L D (14.0-18.0) g/dL Hct 33.1 L (40.0-54.0) % MCV 98.8 D (80-100) fL MCH 35.2 H (27.0-34.0) pg MCHC 35.6 H (33.0-35.0) g/dL Plt Count 301 (150-450) 10^3/uL Neut % (Auto) 75.9 H (42.2-75.2) % Lymph % (Auto) 10.8 L (20.5-50.1) % [place] % (Auto) 7.1 (2-8) % Eos % (Auto) 5.9 H (1.0-3.0) % Baso % (Auto) 0.3 (0.0-1.0) % Add Manual Diff Yes Neutrophils % (Manual) 62 (42-75) % Band Neutrophils % 8 % Lymphocytes % (Manual) 15 L (20-50) % Monocytes % (Manual) 5 (2-8) % Eosinophils % (Manual) 9 H (1-3) % Metamyelocytes % 1 Toxic Granulation 1+ slight Anisocytosis 1+ slight Sodium (136-145) mmol/L Potassium (3.5-5.1) mmol/L Chloride (98-107) mmol/L Carbon Dioxide (21-32) mmol/L Anion Gap (7-13) mEq/L BUN (7-18) mg/dL Creatinine (0.70-1.30) mg/dL Est Cr Clr Drug Dosing Estimated GFR (MDRD) BUN/Creatinine Ratio (No establ ref range) Glucose (74-99) mg/dL Lactic Acid 5.3 H* (0.4-2.0) mmol/L Uric Acid 7.5 H (3.5-7.2) mg/dL Calcium (8.5-10.1) mg/dL Magnesium 1.7 L (1.8-2.4) mg/dL Total Bilirubin (0.2-1.0) mg/dL AST (15-37) U/L ALT (16-63) U/L Alkaline Phosphatase (46-116) U/L Creatine Kinase (39-308) U/L Total Protein (6.4-8.2) g/dL Albumin (3.4-5.0) g/dL Globulin Albumin/Globulin Ratio TSH, Ultra Sensitive 1.31 (0.36-3.74) uIU/mL Ethyl Alcohol 15 (0) mg/dL 09/17/19 09/17/19 Range/Units 15:51 15:51 WBC (5.0-10.0) 10^3/uL RBC (4.6-6.2) 10^6/uL Hgb (14.0-18.0) g/dL Hct (40.0-54.0) % MCV (80-100) fL MCH (27.0-34.0) pg MCHC (33.0-35.0) g/dL Plt Count (150-450) 10^3/uL Neut % (Auto) (42.2-75.2) % Lymph % (Auto) (20.5-50.1) % [place] % (Auto) (2-8) % Eos % (Auto) (1.0-3.0) % Baso % (Auto) (0.0-1.0) % Add Manual Diff Neutrophils % (Manual) (42-75) % Band Neutrophils % % Lymphocytes % (Manual) (20-50) % Monocytes % (Manual) (2-8) % Eosinophils % (Manual) (1-3) % Metamyelocytes % Toxic Granulation Anisocytosis Sodium 127 L (136-145) mmol/L Potassium 2.7 L (3.5-5.1) mmol/L Chloride 87 L (98-107) mmol/L Carbon Dioxide 28 (21-32) mmol/L Anion Gap 14.7 H (7-13) mEq/L BUN 5 L (7-18) mg/dL Creatinine 0.88 (0.70-1.30) mg/dL Est Cr Clr Drug Dosing TNP Estimated GFR (MDRD) > 60 BUN/Creatinine Ratio 5.7 (No establ ref range) Glucose 128 H (74-99) mg/dL Lactic Acid (0.4-2.0) mmol/L Uric Acid (3.5-7.2) mg/dL Calcium 8.2 L (8.5-10.1) mg/dL Magnesium (1.8-2.4) mg/dL Total Bilirubin 3.0 H (0.2-1.0) mg/dL AST 72 H (15-37) U/L ALT 28 (16-63) U/L Alkaline Phosphatase 126 H (46-116) U/L Creatine Kinase 51 (39-308) U/L Total Protein 8.7 H (6.4-8.2) g/dL Albumin 3.0 L (3.4-5.0) g/dL Globulin 5.7 Albumin/Globulin Ratio 0.53 TSH, Ultra Sensitive (0.36-3.74) uIU/mL Ethyl Alcohol (0) mg/dL Result Diagrams: 09/17/19 15:51 09/17/19 15:51 - Problem List (1) Hypokalemia SNOMED Code(s): 13451304 ICD Code: E87.6 - HYPOKALEMIA Status: Acute Current Visit: No (2) Hyponatremia SNOMED Code(s): 88503973 ICD Code: E87.1 - HYPO-OSMOLALITY AND HYPONATREMIA Status: Acute Current Visit: No Problem List Initiated/Reviewed/Updated: Yes Orders Last 24hrs: Active Orders 24 hr Category Date Time Status Admission Diagnosis [ADT] Stat ADT 09/17/19 17:35 Ordered Admission Status [Patient Status] [ADT] Routine ADT 09/17/19 17:35 Active Antiembolic Devices [RC] PER UNIT ROUTINE Care 09/17/19 18:23 Ordered Oxygen Therapy [RC] PRN Care 09/17/19 18:21 Ordered Peripheral IV Care [RC] . DIRECTED Care 09/17/19 18:23 Ordered Up With Assistance [RC] ASDIRECTED Care 09/17/19 18:21 Ordered VTE/DVT Education [RC] PER UNIT ROUTINE Care 09/17/19 18:21 Ordered Vital Signs [RC] Q4H Care 09/17/19 18:21 Ordered Regular Diet [DIET] Diet 09/17/19 Breakfast Ordered Knee 1V or 2V Lt [CR] Urgent Exams 09/17/19 15:59 Taken Knee 1V or 2V Rt [CR] Urgent Exams 09/17/19 15:59 Taken BASIC METABOLIC PANEL,BMP [CHEM] AM Lab 09/18/19 05:15 Ordered CBC WITH AUTO DIFF [HEME] AM Lab 09/18/19 05:15 Ordered CPK [CREATINE KINASE,CK] [CHEM] AM Lab 09/18/19 05:11 Ordered CULTURE BLOOD [BC] Stat Lab 09/17/19 15:51 Received DRUG SCREEN URINE BIORAD [URCHEM] Stat Lab 09/17/19 15:38 Ordered HEPATIC FUNCTION PANEL,HFP [CHEM] AM Lab 09/18/19 05:11 Ordered LACTIC ACID [CHEM] AM Lab 09/18/19 05:11 Ordered MAGNESIUM [CHEM] AM Lab 09/18/19 05:11 Ordered PHOSPHORUS [CHEM] AM Lab 09/18/19 05:11 Ordered UA RFX HARISH AND CULT IF INDIC [URIN] Urgent Lab 09/17/19 15:38 Ordered Heparin Sodium Med 09/17/19 22:00 Ordered 5,000 units SUBCUT Q8HR Ibuprofen [Motrin] Med 09/17/19 18:21 Ordered 400 mg PO Q6H PRN Magnesium Oxide Med 09/17/19 19:00 Ordered 250 mg PO BIDM Morphine Med 09/17/19 18:21 Ordered 2 mg IVPUSH Q2H PRN Ondansetron [Zofran ODT] Med 09/17/19 18:21 Ordered 4 mg PO Q6H PRN Ondansetron [Zofran] Med 09/17/19 18:21 Ordered 4 mg IVPUSH Q6H PRN Permethrin Med 09/17/19 18:18 Once 1 gm TOP ONETIME ONE Potassium Chloride [KCl 10 MEQ in Water 100 ML] 10 meq Med 09/17/19 18:15 Ordered Premix Bag 1 bag IV Q2H Sodium Chloride 0.9% @ 100 MLS/HR(1,000ml) Med 09/17/19 18:15 Ordered Sodium Chloride 0.9% [Normal Saline] 1,000 ml IV ASDIRECTED Sodium Chloride 0.9% [Saline Flush] Med 09/17/19 18:21 Ordered 10 ml FLUSH ASDIRECTED PRN Zolpidem [Ambien] Med 09/17/19 18:21 Ordered 5 mg PO BEDTIME PRN oxyCODONE Med 09/17/19 18:21 Ordered 5 mg PO Q4H PRN Antiembolic Hose [OM.PC] Per Unit Routine Oth 09/17/19 18:22 Ordered Peripheral IV Insertion Adult [OM.PC] Routine Oth 09/17/19 18:21 Ordered Resuscitation Status Routine Resus Stat 09/17/19 18:21 Ordered Medication Orders Heparin Sodium (Porcine) (Heparin Sodium) 5,000 units SUBCUT Q8HR [facility] Potassium Chloride 10 meq/ (Premix) 100 mls @ 50 mls/hr IV Q2H [facility] Stop: 09/18/19 06:29 Sodium Chloride (Normal Saline) 1,000 mls @ 100 mls/hr IV ASDIRECTED SMITH Ibuprofen (Motrin) 400 mg PO Q6H PRN PRN Reason: Pain (mild 1-3) Magnesium Oxide (Magnesium Oxide) 250 mg PO BIDM [facility] Stop: 09/18/19 08:01 Morphine Sulfate (Morphine) 2 mg IVPUSH Q2H PRN PRN Reason: Pain (severe 7-10) Ondansetron HCl (Zofran Odt) 4 mg PO Q6H PRN PRN Reason: nausea, able to take PO Ondansetron HCl (Zofran) 4 mg IVPUSH Q6H PRN PRN Reason: Nausea/Vomiting Oxycodone HCl (Oxycodone) 5 mg PO Q4H PRN PRN Reason: Pain (moderate 4-6) Permethrin (Permethrin) 1 gm TOP ONETIME ONE Stop: 09/17/19 18:19 Sodium Chloride (Saline Flush) 10 ml FLUSH ASDIRECTED PRN PRN Reason: Keep Vein Open Zolpidem Tartrate (Ambien) 5 mg PO BEDTIME PRN PRN Reason: Sleep Assessment/Plan Comment:: 89-year-old who presented with increasing lower extremity weakness. This is in the setting of daily alcohol intake, drinking half a gallon of free water for its "beneficial properties" Lower extremity weakness Associated with hyponatremia hypokalemia, elevated lactic acid We will replace electrolytes with IV potassium replace Magnesium Recheck magnesium, potassium, phosphorus in the morning Lactic acidosis Likely due to liver failure, possibly related to myalgia Will hydrate well Recheck in the morning I doubt that this represents infection, sepsis or ischemic changes Abnormal liver enzymes We'll send hepatitis studies Recheck liver enzymes in the morning Hold tretinoin History of alcohol use For potential withdrawal When the patient was brought in by EMS lice was noted Will use permethrin shampoo DVT prophylaxis with subcutaneous heparin
[2019-09-17] MEDS: Potassium Chloride 10 MEQ in Premix Bag 1 BAG IV SCH ×2 (20:11→22:13)
[2019-09-17] MEDS: Sodium Chloride 0.9% 1,000 ML IV SCH (20:13)
[2019-09-17] MEDS: Heparin Sodium 5,000 Units/ML Vial SUBCUT SCH (21:15)
[2019-09-18] MEDS: Potassium Chloride 10 MEQ in Premix Bag 1 BAG IV SCH ×4 (00:18→06:28)
[2019-09-18] MEDS: Sodium Chloride 0.9% 1,000 ML IV SCH (05:59)
[2019-09-18] MEDS: Heparin Sodium 5,000 Units/ML Vial SUBCUT SCH (06:02)
[2019-09-18 07:02] LABS: ANION GAP 13.4 mEq/L (7-13); CHLORIDE,CL 90 mmol/L (98-107); SODIUM,NA 127 mmol/L (136-145)
--- NOTE | 2019-09-18 10:38 | PCM.PN ---
- General Info Date of Service: 09/18/19 Subjective Update: Has been receiving IV potassium throughout the night. Feels somewhat stronger. Has been able to get up from bed to chair.Still moderate to severe lower extremity weakness. No associated urinary burning incontinence or bowel incontinence. There is associated moderate upper thigh muscle pain. Had his hair shampooed. Functional Status: Reports: Pain Controlled, Tolerating Diet - Review of Systems General: Denies: Fever Pulmonary: Denies: Shortness of Breath Cardiovascular: Denies: Chest Pain, Edema Neurological: Denies: Confusion - Patient Data Vitals - Most Recent: Last Vital Signs Temp 98.2 F 09/18/19 08:26 Pulse 106 H 09/18/19 08:26 Resp 20 09/18/19 08:26 BP 138/62 09/18/19 08:26 Pulse Ox 100 09/18/19 08:26 Weight - Most Recent: 227 lb I&O - Last 24 Hours: Intake & Output 09/17/19 09/18/19 09/18/19 22:59 06:59 14:59 Intake Total 1100 360 Balance 1100 360 Lab Results Last 24 Hours: Laboratory Results - last 24 hr 09/17/19 09/17/19 09/17/19 Range/Units 15:51 15:51 15:51 WBC 21.8 H (5.0-10.0) 10^3/uL RBC 3.35 L (4.6-6.2) 10^6/uL Hgb 11.8 L D (14.0-18.0) g/dL Hct 33.1 L (40.0-54.0) % MCV 98.8 D (80-100) fL MCH 35.2 H (27.0-34.0) pg MCHC 35.6 H (33.0-35.0) g/dL Plt Count 301 (150-450) 10^3/uL Neut % (Auto) 75.9 H (42.2-75.2) % Lymph % (Auto) 10.8 L (20.5-50.1) % Eddy % (Auto) 7.1 (2-8) % Eos % (Auto) 5.9 H (1.0-3.0) % Baso % (Auto) 0.3 (0.0-1.0) % Add Manual Diff Yes Neutrophils % (Manual) 62 (42-75) % Band Neutrophils % 8 % Lymphocytes % (Manual) 15 L (20-50) % Monocytes % (Manual) 5 (2-8) % Eosinophils % (Manual) 9 H (1-3) % Metamyelocytes % 1 Toxic Granulation 1+ slight Anisocytosis 1+ slight Sodium (136-145) mmol/L Potassium (3.5-5.1) mmol/L Chloride (98-107) mmol/L Carbon Dioxide (21-32) mmol/L Anion Gap (7-13) mEq/L BUN (7-18) mg/dL Creatinine (0.70-1.30) mg/dL Est Cr Clr Drug Dosing Estimated GFR (MDRD) BUN/Creatinine Ratio (No establ ref range) Glucose (74-99) mg/dL Lactic Acid 5.3 H* (0.4-2.0) mmol/L Uric Acid 7.5 H (3.5-7.2) mg/dL Calcium (8.5-10.1) mg/dL Phosphorus (2.6-4.7) mg/dL Magnesium 1.7 L (1.8-2.4) mg/dL Total Bilirubin (0.2-1.0) mg/dL Direct Bilirubin (0.0-0.2) mg/dL Indirect Bilirubin AST (15-37) U/L ALT (16-63) U/L Alkaline Phosphatase (46-116) U/L Creatine Kinase (39-308) U/L Total Protein (6.4-8.2) g/dL Albumin (3.4-5.0) g/dL Globulin Albumin/Globulin Ratio TSH, Ultra Sensitive 1.31 (0.36-3.74) uIU/mL Urine Color (YELLOW) Urine Appearance (CLEAR) Urine pH (5.0-9.0) Ur Specific [place] (1.005-1.030) Urine Protein (NEGATIVE) Urine Glucose (UA) (NEGATIVE) Urine Ketones (NEGATIVE) Urine Occult Blood (NEGATIVE) Urine Nitrite (NEGATIVE) Urine Bilirubin (NEGATIVE) Urine Urobilinogen (0.2-1.0) mg/dL Ur Leukocyte Esterase (NEGATIVE) U Hyaline Cast (Auto) Urine RBC /HPF Urine WBC (0-5/HPF) /HPF Ur Epithelial Cells (NOT SEEN) /HPF Amorphous Sediment (NOT SEEN) /HPF Urine Bacteria (0-FEW/HPF) /HPF Urine Mucus (NOT SEEN) /LPF Urine Opiates Screen (NEGATIVE) Ur Oxycodone Screen (NEGATIVE) Urine Methadone Screen (NEGATIVE) Ur Barbiturates Screen (NEGATIVE) U Tricyclic Antidepress (NEGATIVE) Ur Phencyclidine Scrn (NEGATIVE) Ur Amphetamine Screen (NEGATIVE) U Methamphetamines Scrn (NEGATIVE) Urine MDMA Screen (NEGATIVE) U Benzodiazepines Scrn (NEGATIVE) Urine Cocaine Screen (NEGATIVE) U Marijuana (THC) Screen (NEGATIVE) Ethyl Alcohol 15 (0) mg/dL 09/17/19 09/17/19 09/18/19 Range/Units 15:51 15:51 00:38 WBC (5.0-10.0) 10^3/uL RBC (4.6-6.2) 10^6/uL Hgb (14.0-18.0) g/dL Hct (40.0-54.0) % MCV (80-100) fL MCH (27.0-34.0) pg MCHC (33.0-35.0) g/dL Plt Count (150-450) 10^3/uL Neut % (Auto) (42.2-75.2) % Lymph % (Auto) (20.5-50.1) % Eddy % (Auto) (2-8) % Eos % (Auto) (1.0-3.0) % Baso % (Auto) (0.0-1.0) % Add Manual Diff Neutrophils % (Manual) (42-75) % Band Neutrophils % % Lymphocytes % (Manual) (20-50) % Monocytes % (Manual) (2-8) % Eosinophils % (Manual) (1-3) % Metamyelocytes % Toxic Granulation Anisocytosis Sodium 127 L (136-145) mmol/L Potassium 2.7 L (3.5-5.1) mmol/L Chloride 87 L (98-107) mmol/L Carbon Dioxide 28 (21-32) mmol/L Anion Gap 14.7 H (7-13) mEq/L BUN 5 L (7-18) mg/dL Creatinine 0.88 (0.70-1.30) mg/dL Est Cr Clr Drug Dosing TNP Estimated GFR (MDRD) > 60 BUN/Creatinine Ratio 5.7 (No establ ref range) Glucose 128 H (74-99) mg/dL Lactic Acid (0.4-2.0) mmol/L Uric Acid (3.5-7.2) mg/dL Calcium 8.2 L (8.5-10.1) mg/dL Phosphorus (2.6-4.7) mg/dL Magnesium (1.8-2.4) mg/dL Total Bilirubin 3.0 H (0.2-1.0) mg/dL Direct Bilirubin (0.0-0.2) mg/dL Indirect Bilirubin AST 72 H (15-37) U/L ALT 28 (16-63) U/L Alkaline Phosphatase 126 H (46-116) U/L Creatine Kinase 51 (39-308) U/L Total Protein 8.7 H (6.4-8.2) g/dL Albumin 3.0 L (3.4-5.0) g/dL Globulin 5.7 Albumin/Globulin Ratio 0.53 TSH, Ultra Sensitive (0.36-3.74) uIU/mL Urine Color Alisha (YELLOW) Urine Appearance Cloudy (CLEAR) Urine pH 5.5 (5.0-9.0) Ur Specific [place] >= 1.030 (1.005-1.030) Urine Protein 30 H (NEGATIVE) Urine Glucose (UA) 100 H (NEGATIVE) Urine Ketones Trace H (NEGATIVE) Urine Occult Blood Negative (NEGATIVE) Urine Nitrite Positive H (NEGATIVE) Urine Bilirubin Large H (NEGATIVE) Urine Urobilinogen >=8.0 H (0.2-1.0) mg/dL Ur Leukocyte Esterase Negative (NEGATIVE) U Hyaline Cast (Auto) Moderate Urine RBC 0-5 /HPF Urine WBC 0-5 (0-5/HPF) /HPF Ur Epithelial Cells Rare (NOT SEEN) /HPF Amorphous Sediment Moderate (NOT SEEN) /HPF Urine Bacteria Rare (0-FEW/HPF) /HPF Urine Mucus Few H (NOT SEEN) /LPF Urine Opiates Screen (NEGATIVE) Ur Oxycodone Screen (NEGATIVE) Urine Methadone Screen (NEGATIVE) Ur Barbiturates Screen (NEGATIVE) U Tricyclic Antidepress (NEGATIVE) Ur Phencyclidine Scrn (NEGATIVE) Ur Amphetamine Screen (NEGATIVE) U Methamphetamines Scrn (NEGATIVE) Urine MDMA Screen (NEGATIVE) U Benzodiazepines Scrn (NEGATIVE) Urine Cocaine Screen (NEGATIVE) U Marijuana (THC) Screen (NEGATIVE) Ethyl Alcohol (0) mg/dL 04/16/20 04/16/20 04/16/20 Range/Units 00:38 06:00 06:00 WBC (5.0-10.0) 10^3/uL RBC (4.6-6.2) 10^6/uL Hgb (14.0-18.0) g/dL Hct (40.0-54.0) % MCV (80-100) fL MCH (27.0-34.0) pg MCHC (33.0-35.0) g/dL Plt Count (150-450) 10^3/uL Neut % (Auto) (42.2-75.2) % Lymph % (Auto) (20.5-50.1) % Eddy % (Auto) (2-8) % Eos % (Auto) (1.0-3.0) % Baso % (Auto) (0.0-1.0) % Add Manual Diff Neutrophils % (Manual) (42-75) % Band Neutrophils % % Lymphocytes % (Manual) (20-50) % Monocytes % (Manual) (2-8) % Eosinophils % (Manual) (1-3) % Metamyelocytes % Toxic Granulation Anisocytosis Sodium 127 L (136-145) mmol/L Potassium 3.4 L (3.5-5.1) mmol/L Chloride 90 L (98-107) mmol/L Carbon Dioxide 27 (21-32) mmol/L Anion Gap 13.4 H (7-13) mEq/L BUN 5 L (7-18) mg/dL Creatinine 0.73 (0.70-1.30) mg/dL Est Cr Clr Drug Dosing 158.73 Estimated GFR (MDRD) > 60 BUN/Creatinine Ratio (No establ ref range) Glucose 110 H (74-99) mg/dL Lactic Acid 3.6 H* (0.4-2.0) mmol/L Uric Acid (3.5-7.2) mg/dL Calcium 7.8 L (8.5-10.1) mg/dL Phosphorus 2.4 L (2.6-4.7) mg/dL Magnesium 1.8 (1.8-2.4) mg/dL Total Bilirubin 3.2 H (0.2-1.0) mg/dL Direct Bilirubin 1.5 H (0.0-0.2) mg/dL Indirect Bilirubin 1.7 AST 56 H (15-37) U/L ALT 23 (16-63) U/L Alkaline Phosphatase 114 (46-116) U/L Creatine Kinase 47 (39-308) U/L Total Protein 7.3 (6.4-8.2) g/dL Albumin 2.5 L (3.4-5.0) g/dL Globulin 4.8 Albumin/Globulin Ratio 0.52 TSH, Ultra Sensitive (0.36-3.74) uIU/mL Urine Color (YELLOW) Urine Appearance (CLEAR) Urine pH (5.0-9.0) Ur Specific [place] (1.005-1.030) Urine Protein (NEGATIVE) Urine Glucose (UA) (NEGATIVE) Urine Ketones (NEGATIVE) Urine Occult Blood (NEGATIVE) Urine Nitrite (NEGATIVE) Urine Bilirubin (NEGATIVE) Urine Urobilinogen (0.2-1.0) mg/dL Ur Leukocyte Esterase (NEGATIVE) U Hyaline Cast (Auto) Urine RBC /HPF Urine WBC (0-5/HPF) /HPF Ur Epithelial Cells (NOT SEEN) /HPF Amorphous Sediment (NOT SEEN) /HPF Urine Bacteria (0-FEW/HPF) /HPF Urine Mucus (NOT SEEN) /LPF Urine Opiates Screen Negative (NEGATIVE) Ur Oxycodone Screen Negative (NEGATIVE) Urine Methadone Screen Negative (NEGATIVE) Ur Barbiturates Screen Negative (NEGATIVE) U Tricyclic Antidepress Negative (NEGATIVE) Ur Phencyclidine Scrn Negative (NEGATIVE) Ur Amphetamine Screen Negative (NEGATIVE) U Methamphetamines Scrn Negative (NEGATIVE) Urine MDMA Screen Negative (NEGATIVE) U Benzodiazepines Scrn Negative (NEGATIVE) Urine Cocaine Screen Negative (NEGATIVE) U Marijuana (THC) Screen Negative (NEGATIVE) Ethyl Alcohol (0) mg/dL 09/18/19 Range/Units 06:00 WBC 20.0 H (5.0-10.0) 10^3/uL RBC 3.14 L (4.6-6.2) 10^6/uL Hgb 11.2 L (14.0-18.0) g/dL Hct 31.5 L (40.0-54.0) % MCV 100.3 H (80-100) fL MCH 35.7 H (27.0-34.0) pg MCHC 35.6 H (33.0-35.0) g/dL Plt Count 274 (150-450) 10^3/uL Neut % (Auto) 75.7 H (42.2-75.2) % Lymph % (Auto) 12.3 L (20.5-50.1) % Eddy % (Auto) 4.9 (2-8) % Eos % (Auto) 6.8 H (1.0-3.0) % Baso % (Auto) 0.3 (0.0-1.0) % Add Manual Diff Neutrophils % (Manual) (42-75) % Band Neutrophils % % Lymphocytes % (Manual) (20-50) % Monocytes % (Manual) (2-8) % Eosinophils % (Manual) (1-3) % Metamyelocytes % Toxic Granulation Anisocytosis Sodium (136-145) mmol/L Potassium (3.5-5.1) mmol/L Chloride (98-107) mmol/L Carbon Dioxide (21-32) mmol/L Anion Gap (7-13) mEq/L BUN (7-18) mg/dL Creatinine (0.70-1.30) mg/dL Est Cr Clr Drug Dosing Estimated GFR (MDRD) BUN/Creatinine Ratio (No establ ref range) Glucose (74-99) mg/dL Lactic Acid (0.4-2.0) mmol/L Uric Acid (3.5-7.2) mg/dL Calcium (8.5-10.1) mg/dL Phosphorus (2.6-4.7) mg/dL Magnesium (1.8-2.4) mg/dL Total Bilirubin (0.2-1.0) mg/dL Direct Bilirubin (0.0-0.2) mg/dL Indirect Bilirubin AST (15-37) U/L ALT (16-63) U/L Alkaline Phosphatase (46-116) U/L Creatine Kinase (39-308) U/L Total Protein (6.4-8.2) g/dL Albumin (3.4-5.0) g/dL Globulin Albumin/Globulin Ratio TSH, Ultra Sensitive (0.36-3.74) uIU/mL Urine Color (YELLOW) Urine Appearance (CLEAR) Urine pH (5.0-9.0) Ur Specific [place] (1.005-1.030) Urine Protein (NEGATIVE) Urine Glucose (UA) (NEGATIVE) Urine Ketones (NEGATIVE) Urine Occult Blood (NEGATIVE) Urine Nitrite (NEGATIVE) Urine Bilirubin (NEGATIVE) Urine Urobilinogen (0.2-1.0) mg/dL Ur Leukocyte Esterase (NEGATIVE) U Hyaline Cast (Auto) Urine RBC /HPF Urine WBC (0-5/HPF) /HPF Ur Epithelial Cells (NOT SEEN) /HPF Amorphous Sediment (NOT SEEN) /HPF Urine Bacteria (0-FEW/HPF) /HPF Urine Mucus (NOT SEEN) /LPF Urine Opiates Screen (NEGATIVE) Ur Oxycodone Screen (NEGATIVE) Urine Methadone Screen (NEGATIVE) Ur Barbiturates Screen (NEGATIVE) U Tricyclic Antidepress (NEGATIVE) Ur Phencyclidine Scrn (NEGATIVE) Ur Amphetamine Screen (NEGATIVE) U Methamphetamines Scrn (NEGATIVE) Urine MDMA Screen (NEGATIVE) U Benzodiazepines Scrn (NEGATIVE) Urine Cocaine Screen (NEGATIVE) U Marijuana (THC) Screen (NEGATIVE) Ethyl Alcohol (0) mg/dL Med Orders - Current: Current Medications Heparin Sodium (Porcine) (Heparin Sodium) 5,000 units SUBCUT Q8HR [facility] Last Admin: 09/18/19 06:02 Dose: 5,000 units Sodium Chloride (Normal Saline) 1,000 mls @ 100 mls/hr IV ASDIRECTED [facility] Last Admin: 09/18/19 05:59 Dose: 100 mls/hr Ibuprofen (Motrin) 400 mg PO Q6H PRN PRN Reason: Pain (mild 1-3) Morphine Sulfate (Morphine) 2 mg IVPUSH Q2H PRN PRN Reason: Pain (severe 7-10) Ondansetron HCl (Zofran Odt) 4 mg PO Q6H PRN PRN Reason: nausea, able to take PO Ondansetron HCl (Zofran) 4 mg IVPUSH Q6H PRN PRN Reason: Nausea/Vomiting Oxycodone HCl (Oxycodone) 5 mg PO Q4H PRN PRN Reason: Pain (moderate 4-6) Sodium Chloride (Saline Flush) 10 ml FLUSH ASDIRECTED PRN PRN Reason: Keep Vein Open Sodium Phosphate (Neutra-Phos) 250 mg PO QID [facility] Stop: 09/18/19 21:01 Zolpidem Tartrate (Ambien) 5 mg PO BEDTIME PRN PRN Reason: Sleep Discontinued Medications Potassium Chloride 10 meq/ (Premix) 100 mls @ 100 mls/hr IV ONETIME ONE Stop: 09/17/19 17:41 Last Admin: 09/17/19 16:53 Dose: 100 mls/hr Sodium Chloride (Normal Saline) 1,000 mls @ 999 mls/hr IV .BOLUS ONE Stop: 09/17/19 17:42 Last Admin: 09/17/19 16:53 Dose: 999 mls/hr Potassium Chloride 10 meq/ (Premix) 100 mls @ 50 mls/hr IV Q2H [facility] Stop: 09/18/19 06:29 Last Admin: 09/18/19 06:28 Dose: 50 mls/hr Magnesium Oxide (Magnesium Oxide) 250 mg PO BIDM [facility] Stop: 09/18/19 08:01 Last Admin: 09/17/19 20:18 Dose: 250 mg Permethrin (Permethrin) 0 gm TOP ONETIME ONE Stop: 09/17/19 18:19 Last Admin: 09/17/19 20:09 Dose: 1 applic - Exam General: Alert, Oriented Neck: Supple Lungs: Clear to Auscultation, Normal Respiratory Effort Extremities: No Pedal Edema Neurological: No New Focal Deficit, Other (Able to lift bilateral lower extremities against gravity) Sepsis Event Note - Evaluation Sepsis Screening Result: Severe Sepsis Risk - Focused Exam Vital Signs: Vital Signs Temp Pulse Resp BP Pulse Ox 09/18/19 08:26 98.2 F 106 H 20 138/62 100 09/18/19 04:00 97.8 F 112 H 20 128/60 100 Date Exam was Performed: 09/18/19 Time Exam was Performed: 10:35 - Problem List & Annotations (1) Hypokalemia SNOMED Code(s): 35483229 Code(s): E87.6 - HYPOKALEMIA Status: Acute Current Visit: No (2) Hyponatremia SNOMED Code(s): 17439223 Code(s): E87.1 - HYPO-OSMOLALITY AND HYPONATREMIA Status: Acute Current Visit: No - Problem List Review Problem List Initiated/Reviewed/Updated: Yes - My Orders Last 24 Hours: My Active Orders 09/17/19 18:15 Sodium Chloride 0.9% [Normal Saline] 1,000 ml IV ASDIRECTED 09/17/19 18:21 Oxygen Therapy [RC] .PRN Up With Assistance [RC] ASDIRECTED VTE/DVT Education [RC] PER UNIT ROUTINE Vital Signs [RC] 04,08,12,16,20,00 Ibuprofen [Motrin] 400 mg PO Q6H PRN Morphine 2 mg IVPUSH Q2H PRN Ondansetron [Zofran ODT] 4 mg PO Q6H PRN Ondansetron [Zofran] 4 mg IVPUSH Q6H PRN Sodium Chloride 0.9% [Saline Flush] 10 ml FLUSH ASDIRECTED PRN Zolpidem [Ambien] 5 mg PO BEDTIME PRN oxyCODONE 5 mg PO Q4H PRN Peripheral IV Insertion Adult [OM.PC] Routine Resuscitation Status Routine 09/17/19 18:22 Antiembolic Hose [OM.PC] Per Unit Routine 09/17/19 18:23 Antiembolic Devices [RC] PER UNIT ROUTINE Peripheral IV Care [RC] 09,21 09/17/19 22:00 Heparin Sodium 5,000 units SUBCUT Q8HR 09/18/19 10:34 OT Evaluation and Treatment [CONS] Routine PT Evaluation and Treatment [CONS] Routine 09/18/19 13:00 Phosphorus #1 [Neutra-Phos] 250 mg PO QID 09/19/19 05:11 HEPATIC FUNCTION PANEL,HFP [CHEM] AM MAGNESIUM [CHEM] AM PHOSPHORUS [CHEM] AM 09/19/19 05:15 BASIC METABOLIC PANEL,BMP [CHEM] AM CBC WITH AUTO DIFF [HEME] AM - Plan Plan:: 89-year-old who presented with increasing lower extremity weakness. This is in the setting of daily alcohol intake, drinking half a gallon of free water for its "beneficial properties" Lower extremity weakness Associated with hyponatremia hypokalemia, elevated lactic acid We will replace electrolytes CPK is normal Will check sedimentation rate Recheck magnesium, potassium, phosphorus in the morning Lactic acidosis Likely due to liver failure, possibly related to myalgia Will hydrate well Recheck in the morning I doubt that this represents infection, sepsis or ischemic changes I doubt viral hepatitis given relatively normal AST, AST Abnormal liver enzymes We'll send hepatitis studies Recheck liver enzymes in the morning Hold tretinoin History of alcohol use For potential withdrawal When the patient was brought in by EMS lice was noted Will use permethrin shampoo DVT prophylaxis with subcutaneous heparin
--- NOTE | 2019-09-18 10:54 | PCM.DCSUM1 ---
Discharge Summary - Hospital Course Free Text/Narrative:: 24-year-old who presented with increasing lower extremity weakness. h/o acne on minocycline, tretinoin cream in the history there is also a few days episode when he had numbness in the lower extremities and was given the diagnosis of peripheral neuropathy. According to patient that resolved within a few days. has a h/o "numbness" in LEs transiently few years ago This is in the setting of daily alcohol intake (about 3 beer equivalent "Juice") , drinking half a gallon of free water for its "beneficial properties" Lower extremity weakness Associated with hyponatremia, hypokalemia, elevated lactic acid, continued leukocytosis CPK is normal replacing ELytes transfer to [facility] for further Neuro evaluation Lactic acidosis Likely due to alcohol use, alcohol related liver failure, possibly related to myalgia, muscle improved with hydration I doubt that this represents infection, sepsis or ischemic changes I doubt viral hepatitis given relatively normal AST, AST Recheck liver enzymes Hold tretinoin, minocycline History of alcohol use For potential withdrawal When the patient was brought in by EMS lice was noted Used permethrin shampoo Diagnosis: Stroke: No - Discharge Data Discharge Date: 09/18/19 Discharge Disposition: DC/Tfer to Acute Hospital 02 Condition: Good - Referral to Home Health Primary Care Physician: [facility] - Discharge Diagnosis/Problem(s) (1) Hypokalemia SNOMED Code(s): 53028588 ICD Code: E87.6 - HYPOKALEMIA Status: Acute Current Visit: No (2) Hyponatremia SNOMED Code(s): 08419872 ICD Code: E87.1 - HYPO-OSMOLALITY AND HYPONATREMIA Status: Acute Current Visit: No - Patient Summary/Data Consults: Consultations 09/18/19 10:34 OT Evaluation and Treatment [CONS] Routine PT Evaluation and Treatment [CONS] Routine - Discharge Plan *PRESCRIPTION DRUG MONITORING PROGRAM REVIEWED*: Not Applicable *COPY OF PRESCRIPTION DRUG MONITORING REPORT IN PATIENT KIRSTEN: Not Applicable Home Medications: Home Meds Heparin Sodium 5,000 units SUBCUT Q8HR vial 09/18/19 [Rx] Oxygen Therapy Mode: Room Air - Discharge Summary/Plan Comment DC Time >30 min.: Yes (d/w dr. Galarza, dr. Mccallum, arranging transfer) - General Info Date of Service: 09/18/19 - Review of Systems General: Reports: Weakness. Denies: Fever Pulmonary: Denies: Shortness of Breath Cardiovascular: Denies: Chest Pain, Edema Gastrointestinal: Denies: Abdominal Pain Genitourinary: Denies: Dysuria Neurological: Denies: Confusion - Patient Data Vitals - Most Recent: Last Vital Signs Temp 98.2 F 09/18/19 08:26 Pulse 106 H 09/18/19 08:26 Resp 20 09/18/19 08:26 BP 138/62 09/18/19 08:26 Pulse Ox 100 09/18/19 08:26 Weight - Most Recent: 227 lb I&O - Last 24 hours: Intake & Output 09/17/19 09/18/19 09/18/19 22:59 06:59 14:59 Intake Total 1100 360 Balance 1100 360 Lab Results - Last 24 hrs: Laboratory Results - last 24 hr 09/17/19 09/17/19 09/17/19 Range/Units 15:51 15:51 15:51 WBC 21.8 H (5.0-10.0) 10^3/uL RBC 3.35 L (4.6-6.2) 10^6/uL Hgb 11.8 L D (14.0-18.0) g/dL Hct 33.1 L (40.0-54.0) % MCV 98.8 D (80-100) fL MCH 35.2 H (27.0-34.0) pg MCHC 35.6 H (33.0-35.0) g/dL Plt Count 301 (150-450) 10^3/uL Neut % (Auto) 75.9 H (42.2-75.2) % Lymph % (Auto) 10.8 L (20.5-50.1) % [place] % (Auto) 7.1 (2-8) % Eos % (Auto) 5.9 H (1.0-3.0) % Baso % (Auto) 0.3 (0.0-1.0) % Add Manual Diff Yes Neutrophils % (Manual) 62 (42-75) % Band Neutrophils % 8 % Lymphocytes % (Manual) 15 L (20-50) % Monocytes % (Manual) 5 (2-8) % Eosinophils % (Manual) 9 H (1-3) % Metamyelocytes % 1 Toxic Granulation 1+ slight Anisocytosis 1+ slight Sodium (136-145) mmol/L Potassium (3.5-5.1) mmol/L Chloride (98-107) mmol/L Carbon Dioxide (21-32) mmol/L Anion Gap (7-13) mEq/L BUN (7-18) mg/dL Creatinine (0.70-1.30) mg/dL Est Cr Clr Drug Dosing Estimated GFR (MDRD) BUN/Creatinine Ratio (No establ ref range) Glucose (74-99) mg/dL Lactic Acid 5.3 H* (0.4-2.0) mmol/L Uric Acid 7.5 H (3.5-7.2) mg/dL Calcium (8.5-10.1) mg/dL Phosphorus (2.6-4.7) mg/dL Magnesium 1.7 L (1.8-2.4) mg/dL Total Bilirubin (0.2-1.0) mg/dL Direct Bilirubin (0.0-0.2) mg/dL Indirect Bilirubin AST (15-37) U/L ALT (16-63) U/L Alkaline Phosphatase (46-116) U/L Creatine Kinase (39-308) U/L Total Protein (6.4-8.2) g/dL Albumin (3.4-5.0) g/dL Globulin Albumin/Globulin Ratio TSH, Ultra Sensitive 1.31 (0.36-3.74) uIU/mL Urine Color (YELLOW) Urine Appearance (CLEAR) Urine pH (5.0-9.0) Ur Specific [place] (1.005-1.030) Urine Protein (NEGATIVE) Urine Glucose (UA) (NEGATIVE) Urine Ketones (NEGATIVE) Urine Occult Blood (NEGATIVE) Urine Nitrite (NEGATIVE) Urine Bilirubin (NEGATIVE) Urine Urobilinogen (0.2-1.0) mg/dL Ur Leukocyte Esterase (NEGATIVE) U Hyaline Cast (Auto) Urine RBC /HPF Urine WBC (0-5/HPF) /HPF Ur Epithelial Cells (NOT SEEN) /HPF Amorphous Sediment (NOT SEEN) /HPF Urine Bacteria (0-FEW/HPF) /HPF Urine Mucus (NOT SEEN) /LPF Urine Opiates Screen (NEGATIVE) Ur Oxycodone Screen (NEGATIVE) Urine Methadone Screen (NEGATIVE) Ur Barbiturates Screen (NEGATIVE) U Tricyclic Antidepress (NEGATIVE) Ur Phencyclidine Scrn (NEGATIVE) Ur Amphetamine Screen (NEGATIVE) U Methamphetamines Scrn (NEGATIVE) Urine MDMA Screen (NEGATIVE) U Benzodiazepines Scrn (NEGATIVE) Urine Cocaine Screen (NEGATIVE) U Marijuana (THC) Screen (NEGATIVE) Ethyl Alcohol 15 (0) mg/dL 09/17/19 09/17/19 09/18/19 Range/Units 15:51 15:51 00:38 WBC (5.0-10.0) 10^3/uL RBC (4.6-6.2) 10^6/uL Hgb (14.0-18.0) g/dL Hct (40.0-54.0) % MCV (80-100) fL MCH (27.0-34.0) pg MCHC (33.0-35.0) g/dL Plt Count (150-450) 10^3/uL Neut % (Auto) (42.2-75.2) % Lymph % (Auto) (20.5-50.1) % [place] % (Auto) (2-8) % Eos % (Auto) (1.0-3.0) % Baso % (Auto) (0.0-1.0) % Add Manual Diff Neutrophils % (Manual) (42-75) % Band Neutrophils % % Lymphocytes % (Manual) (20-50) % Monocytes % (Manual) (2-8) % Eosinophils % (Manual) (1-3) % Metamyelocytes % Toxic Granulation Anisocytosis Sodium 127 L (136-145) mmol/L Potassium 2.7 L (3.5-5.1) mmol/L Chloride 87 L (98-107) mmol/L Carbon Dioxide 28 (21-32) mmol/L Anion Gap 14.7 H (7-13) mEq/L BUN 5 L (7-18) mg/dL Creatinine 0.88 (0.70-1.30) mg/dL Est Cr Clr Drug Dosing TNP Estimated GFR (MDRD) > 60 BUN/Creatinine Ratio 5.7 (No establ ref range) Glucose 128 H (74-99) mg/dL Lactic Acid (0.4-2.0) mmol/L Uric Acid (3.5-7.2) mg/dL Calcium 8.2 L (8.5-10.1) mg/dL Phosphorus (2.6-4.7) mg/dL Magnesium (1.8-2.4) mg/dL Total Bilirubin 3.0 H (0.2-1.0) mg/dL Direct Bilirubin (0.0-0.2) mg/dL Indirect Bilirubin AST 72 H (15-37) U/L ALT 28 (16-63) U/L Alkaline Phosphatase 126 H (46-116) U/L Creatine Kinase 51 (39-308) U/L Total Protein 8.7 H (6.4-8.2) g/dL Albumin 3.0 L (3.4-5.0) g/dL Globulin 5.7 Albumin/Globulin Ratio 0.53 TSH, Ultra Sensitive (0.36-3.74) uIU/mL Urine Color Alisha (YELLOW) Urine Appearance Cloudy (CLEAR) Urine pH 5.5 (5.0-9.0) Ur Specific [place] >= 1.030 (1.005-1.030) Urine Protein 30 H (NEGATIVE) Urine Glucose (UA) 100 H (NEGATIVE) Urine Ketones Trace H (NEGATIVE) Urine Occult Blood Negative (NEGATIVE) Urine Nitrite Positive H (NEGATIVE) Urine Bilirubin Large H (NEGATIVE) Urine Urobilinogen >=8.0 H (0.2-1.0) mg/dL Ur Leukocyte Esterase Negative (NEGATIVE) U Hyaline Cast (Auto) Moderate Urine RBC 0-5 /HPF Urine WBC 0-5 (0-5/HPF) /HPF Ur Epithelial Cells Rare (NOT SEEN) /HPF Amorphous Sediment Moderate (NOT SEEN) /HPF Urine Bacteria Rare (0-FEW/HPF) /HPF Urine Mucus Few H (NOT SEEN) /LPF Urine Opiates Screen (NEGATIVE) Ur Oxycodone Screen (NEGATIVE) Urine Methadone Screen (NEGATIVE) Ur Barbiturates Screen (NEGATIVE) U Tricyclic Antidepress (NEGATIVE) Ur Phencyclidine Scrn (NEGATIVE) Ur Amphetamine Screen (NEGATIVE) U Methamphetamines Scrn (NEGATIVE) Urine MDMA Screen (NEGATIVE) U Benzodiazepines Scrn (NEGATIVE) Urine Cocaine Screen (NEGATIVE) U Marijuana (THC) Screen (NEGATIVE) Ethyl Alcohol (0) mg/dL 09/18/19 09/18/19 09/18/19 Range/Units 00:38 06:00 06:00 WBC (5.0-10.0) 10^3/uL RBC (4.6-6.2) 10^6/uL Hgb (14.0-18.0) g/dL Hct (40.0-54.0) % MCV (80-100) fL MCH (27.0-34.0) pg MCHC (33.0-35.0) g/dL Plt Count (150-450) 10^3/uL Neut % (Auto) (42.2-75.2) % Lymph % (Auto) (20.5-50.1) % [place] % (Auto) (2-8) % Eos % (Auto) (1.0-3.0) % Baso % (Auto) (0.0-1.0) % Add Manual Diff Neutrophils % (Manual) (42-75) % Band Neutrophils % % Lymphocytes % (Manual) (20-50) % Monocytes % (Manual) (2-8) % Eosinophils % (Manual) (1-3) % Metamyelocytes % Toxic Granulation Anisocytosis Sodium 127 L (136-145) mmol/L Potassium 3.4 L (3.5-5.1) mmol/L Chloride 90 L (98-107) mmol/L Carbon Dioxide 27 (21-32) mmol/L Anion Gap 13.4 H (7-13) mEq/L BUN 5 L (7-18) mg/dL Creatinine 0.73 (0.70-1.30) mg/dL Est Cr Clr Drug Dosing 158.73 Estimated GFR (MDRD) > 60 BUN/Creatinine Ratio (No establ ref range) Glucose 110 H (74-99) mg/dL Lactic Acid 3.6 H* (0.4-2.0) mmol/L Uric Acid (3.5-7.2) mg/dL Calcium 7.8 L (8.5-10.1) mg/dL Phosphorus 2.4 L (2.6-4.7) mg/dL Magnesium 1.8 (1.8-2.4) mg/dL Total Bilirubin 3.2 H (0.2-1.0) mg/dL Direct Bilirubin 1.5 H (0.0-0.2) mg/dL Indirect Bilirubin 1.7 AST 56 H (15-37) U/L ALT 23 (16-63) U/L Alkaline Phosphatase 114 (46-116) U/L Creatine Kinase 47 (39-308) U/L Total Protein 7.3 (6.4-8.2) g/dL Albumin 2.5 L (3.4-5.0) g/dL Globulin 4.8 Albumin/Globulin Ratio 0.52 TSH, Ultra Sensitive (0.36-3.74) uIU/mL Urine Color (YELLOW) Urine Appearance (CLEAR) Urine pH (5.0-9.0) Ur Specific [place] (1.005-1.030) Urine Protein (NEGATIVE) Urine Glucose (UA) (NEGATIVE) Urine Ketones (NEGATIVE) Urine Occult Blood (NEGATIVE) Urine Nitrite (NEGATIVE) Urine Bilirubin (NEGATIVE) Urine Urobilinogen (0.2-1.0) mg/dL Ur Leukocyte Esterase (NEGATIVE) U Hyaline Cast (Auto) Urine RBC /HPF Urine WBC (0-5/HPF) /HPF Ur Epithelial Cells (NOT SEEN) /HPF Amorphous Sediment (NOT SEEN) /HPF Urine Bacteria (0-FEW/HPF) /HPF Urine Mucus (NOT SEEN) /LPF Urine Opiates Screen Negative (NEGATIVE) Ur Oxycodone Screen Negative (NEGATIVE) Urine Methadone Screen Negative (NEGATIVE) Ur Barbiturates Screen Negative (NEGATIVE) U Tricyclic Antidepress Negative (NEGATIVE) Ur Phencyclidine Scrn Negative (NEGATIVE) Ur Amphetamine Screen Negative (NEGATIVE) U Methamphetamines Scrn Negative (NEGATIVE) Urine MDMA Screen Negative (NEGATIVE) U Benzodiazepines Scrn Negative (NEGATIVE) Urine Cocaine Screen Negative (NEGATIVE) U Marijuana (THC) Screen Negative (NEGATIVE) Ethyl Alcohol (0) mg/dL 09/18/19 Range/Units 06:00 WBC 20.0 H (5.0-10.0) 10^3/uL RBC 3.14 L (4.6-6.2) 10^6/uL Hgb 11.2 L (14.0-18.0) g/dL Hct 31.5 L (40.0-54.0) % MCV 100.3 H (80-100) fL MCH 35.7 H (27.0-34.0) pg MCHC 35.6 H (33.0-35.0) g/dL Plt Count 274 (150-450) 10^3/uL Neut % (Auto) 75.7 H (42.2-75.2) % Lymph % (Auto) 12.3 L (20.5-50.1) % [place] % (Auto) 4.9 (2-8) % Eos % (Auto) 6.8 H (1.0-3.0) % Baso % (Auto) 0.3 (0.0-1.0) % Add Manual Diff Neutrophils % (Manual) (42-75) % Band Neutrophils % % Lymphocytes % (Manual) (20-50) % Monocytes % (Manual) (2-8) % Eosinophils % (Manual) (1-3) % Metamyelocytes % Toxic Granulation Anisocytosis Sodium (136-145) mmol/L Potassium (3.5-5.1) mmol/L Chloride (98-107) mmol/L Carbon Dioxide (21-32) mmol/L Anion Gap (7-13) mEq/L BUN (7-18) mg/dL Creatinine (0.70-1.30) mg/dL Est Cr Clr Drug Dosing Estimated GFR (MDRD) BUN/Creatinine Ratio (No establ ref range) Glucose (74-99) mg/dL Lactic Acid (0.4-2.0) mmol/L Uric Acid (3.5-7.2) mg/dL Calcium (8.5-10.1) mg/dL Phosphorus (2.6-4.7) mg/dL Magnesium (1.8-2.4) mg/dL Total Bilirubin (0.2-1.0) mg/dL Direct Bilirubin (0.0-0.2) mg/dL Indirect Bilirubin AST (15-37) U/L ALT (16-63) U/L Alkaline Phosphatase (46-116) U/L Creatine Kinase (39-308) U/L Total Protein (6.4-8.2) g/dL Albumin (3.4-5.0) g/dL Globulin Albumin/Globulin Ratio TSH, Ultra Sensitive (0.36-3.74) uIU/mL Urine Color (YELLOW) Urine Appearance (CLEAR) Urine pH (5.0-9.0) Ur Specific [place] (1.005-1.030) Urine Protein (NEGATIVE) Urine Glucose (UA) (NEGATIVE) Urine Ketones (NEGATIVE) Urine Occult Blood (NEGATIVE) Urine Nitrite (NEGATIVE) Urine Bilirubin (NEGATIVE) Urine Urobilinogen (0.2-1.0) mg/dL Ur Leukocyte Esterase (NEGATIVE) U Hyaline Cast (Auto) Urine RBC /HPF Urine WBC (0-5/HPF) /HPF Ur Epithelial Cells (NOT SEEN) /HPF Amorphous Sediment (NOT SEEN) /HPF Urine Bacteria (0-FEW/HPF) /HPF Urine Mucus (NOT SEEN) /LPF Urine Opiates Screen (NEGATIVE) Ur Oxycodone Screen (NEGATIVE) Urine Methadone Screen (NEGATIVE) Ur Barbiturates Screen (NEGATIVE) U Tricyclic Antidepress (NEGATIVE) Ur Phencyclidine Scrn (NEGATIVE) Ur Amphetamine Screen (NEGATIVE) U Methamphetamines Scrn (NEGATIVE) Urine MDMA Screen (NEGATIVE) U Benzodiazepines Scrn (NEGATIVE) Urine Cocaine Screen (NEGATIVE) U Marijuana (THC) Screen (NEGATIVE) Ethyl Alcohol (0) mg/dL Med Orders - Current: Current Medications Heparin Sodium (Porcine) (Heparin Sodium) 5,000 units SUBCUT Q8HR [facility] Last Admin: 09/18/19 06:02 Dose: 5,000 units Sodium Chloride (Normal Saline) 1,000 mls @ 100 mls/hr IV ASDIRECTED [facility] Last Admin: 09/18/19 05:59 Dose: 100 mls/hr Ibuprofen (Motrin) 400 mg PO Q6H PRN PRN Reason: Pain (mild 1-3) Morphine Sulfate (Morphine) 2 mg IVPUSH Q2H PRN PRN Reason: Pain (severe 7-10) Ondansetron HCl (Zofran Odt) 4 mg PO Q6H PRN PRN Reason: nausea, able to take PO Ondansetron HCl (Zofran) 4 mg IVPUSH Q6H PRN PRN Reason: Nausea/Vomiting Oxycodone HCl (Oxycodone) 5 mg PO Q4H PRN PRN Reason: Pain (moderate 4-6) Sodium Chloride (Saline Flush) 10 ml FLUSH ASDIRECTED PRN PRN Reason: Keep Vein Open Sodium Phosphate (Neutra-Phos) 250 mg PO QID [facility] Stop: 09/18/19 21:01 Zolpidem Tartrate (Ambien) 5 mg PO BEDTIME PRN PRN Reason: Sleep Discontinued Medications Potassium Chloride 10 meq/ (Premix) 100 mls @ 100 mls/hr IV ONETIME ONE Stop: 09/17/19 17:41 Last Admin: 09/17/19 16:53 Dose: 100 mls/hr Sodium Chloride (Normal Saline) 1,000 mls @ 999 mls/hr IV .BOLUS ONE Stop: 09/17/19 17:42 Last Admin: 09/17/19 16:53 Dose: 999 mls/hr Potassium Chloride 10 meq/ (Premix) 100 mls @ 50 mls/hr IV Q2H [facility] Stop: 09/18/19 06:29 Last Admin: 09/18/19 06:28 Dose: 50 mls/hr Magnesium Oxide (Magnesium Oxide) 250 mg PO BIDM [facility] Stop: 09/18/19 08:01 Last Admin: 09/17/19 20:18 Dose: 250 mg Permethrin (Permethrin) 0 gm TOP ONETIME ONE Stop: 09/17/19 18:19 Last Admin: 09/17/19 20:09 Dose: 1 applic - Exam General: Reports: Alert, Oriented Lungs: Reports: Clear to Auscultation, Normal Respiratory Effort Cardiovascular: Reports: Regular Rate, Regular Rhythm GI/Abdominal Exam: Normal Bowel Sounds, Soft, Non-Tender Extremities: No Pedal Edema Neurological: Reports: Sensation Intact, Other (decreased LE strength but able to lift against gravity) Psy/Mental Status: Reports: Alert, Normal Affect, Normal Mood
[2019-09-18 11:51] VITALS: BP 141/58; PULSE 120
[2019-09-18] MEDS ORDERED: Phosphorus #1 250 MG Tab PO SCH (13:00)
== END 2019-09-18 11:45 | DRG 641 ==
LOC: DL.ED 14:58 → DL.MS 17:35
PROVIDERS: ADMIT Internal Medicine; ATTEND Internal Medicine
DX: E87.6 Hypokalemia (principal); E87.1 Hypo-osmolality and hyponatremia; E66.9 Obesity, unspecified; E87.2 Acidosis; K72.90 Hepatic failure, unspecified without coma; I10 Essential (primary) hypertension; G62.9 Polyneuropathy, unspecified; Z87.891 Personal history of nicotine dependence; Z68.33 Body mass index [BMI] 33.0-33.9, adult
CPT/HCPCS: 36415; 73560-LT; 73560-RT; 80048; 80053; 80076; 80305-QW; 80307; 81001; 82550; 83605; 83735; 84100; 84443; 84550; 85025; 87040; 87086; 96365; 99285-25; A9270-GY; J1644; J3480; J7030

== ENCOUNTER 2020-06-08 11:11 | Emergency (ER) | payer MEDICAID, OTHER ==
--- NOTE | 2020-06-08 11:27 | EDM.PDOC ---
ED HPI GENERAL MEDICAL PROBLEM - General Chief Complaint: General Stated Complaint: AMBULANCE Time Seen by Provider: 06/08/20 11:27 Source of Information: Reports: Patient, EMS, Old Records, RN, RN Notes Reviewed History Limitations: Reports: No Limitations - History of Present Illness INITIAL COMMENTS - FREE TEXT/NARRATIVE: Pt arrives to ER by ambulance with report that he has Hx of MS, and c/o swelling in the feet and lower legs, sore throat, and "just not feeling well" in general. Pt admits to daily alcohol use, but will not quantify how much he drinks. He states some days heavy, but most days about 3 drinks. Denies fever, chest pain, abdominal pain, N/V/D, black, bloody, or tarry stools. Onset: Gradual, Unknown/Unsure Duration: Constant, Getting Worse Location: Reports: Generalized Quality: Reports: Other (Denies pain) Severity: Severe Improves with: Reports: None Worsens with: Reports: None Context: Denies: Sick Contact Associated Symptoms: Reports: No Other Symptoms - Related Data Allergies Allergy/AdvReac Type Severity Reaction Status Date / Time No Known Allergies Allergy Verified 06/08/20 11:39 Past Medical History - Past Health History Medical/Surgical History: Denies Medical/Surgical History HEENT History: Reports: None Cardiovascular History: Reports: Hypertension Respiratory History: Reports: None Gastrointestinal History: Reports: None Genitourinary History: Reports: None Musculoskeletal History: Reports: None Neurological History: Reports: None Psychiatric History: Reports: Addiction Endocrine/Metabolic History: Reports: Obesity/BMI 30+ Hematologic History: Reports: None Immunologic History: Reports: None Oncologic (Cancer) History: Reports: None Dermatologic History: Reports: Other (See Below) Other Dermatologic History: acne - Infectious Disease History Infectious Disease History: Reports: Chicken Pox Social & Family History - Family History Family Medical History: No Pertinent Family History - Caffeine Use Caffeine Use: Reports: Soda - Alcohol Use Alcohol Use History: Yes Alcohol Use Frequency: Daily - Recreational Drug Use Recreational Drug Use: No Drug Use in Last 12 Months: No - Living Situation & Occupation Living situation: Reports: with Family Occupation: Employed ED ROS GENERAL - Review of Systems Review Of Systems: Comprehensive ROS is negative, except as noted in HPI. ED EXAM, GENERAL - Physical Exam Exam: See Below Exam Limited By: No Limitations General Appearance: Alert, No Apparent Distress, Obese, Other (Acutely ill appearing) Eye Exam: Bilateral Eye: EOMI, PERRL, Other (Scleral icterus) Ears: Normal External Exam, Hearing Grossly Normal Nose: Normal Inspection, Normal Mucosa, No Blood Throat/Mouth: Normal Voice, No Airway Compromise, Other (Dry cracked lips with dried blood, very dry oral mucosa) Head: Atraumatic, Normocephalic Neck: Normal Inspection, Supple, Non-Tender, Full Range of Motion. No: Lymphadenopathy (L), Lymphadenopathy (R) Respiratory/Chest: No Respiratory Distress, Lungs Clear, Normal Breath Sounds, No Accessory Muscle Use, Chest Non-Tender Cardiovascular: Normal Peripheral Pulses, Regular Rate, Rhythm, No JVD, Other (Moderately severe pedal edema) GI/Abdominal: Normal Bowel Sounds, Soft, Non-Tender (obese abdomen), Pelvis Stable. No: Guarding, Rigid, Rebound Rectal (Males) Exam: Normal Exam, Other (Heme negative stool) Back Exam: Normal Inspection. No: CVA Tenderness (L), CVA Tenderness (R) Extremities: Normal Range of Motion, Normal Capillary Refill, Pedal Edema. No: Joint Swelling, Tim's Sign, Increased Warmth, Mottled, Pallor, Redness Neurological: Alert, Oriented, CN II-XII Intact, Normal Cognition, No Motor/Sensory Deficits Psychiatric: Depressed Mood, Flat Affect Skin Exam: Warm, Dry, Intact, Jaundice (mild). No: Ecchymosis, Petechiae, Rash #1 Interpretation EKG Date: 06/08/20 Time: 11:43 Rhythm: Other (SR) Rate (Beats/Min): [address] [place] [address]: LAD-Left [place] Deviation P-Wave: Present QRS: Normal ST-T: Depressed (diffuse repol. abnormality) QT: Prolonged Comparison: NA - No Prior EKG Course - Vital Signs Last Recorded V/S: Last Vital Signs Temp 97.9 F 06/08/20 14:21 Pulse 104 H 06/08/20 14:21 Resp 25 H 06/08/20 14:21 BP 86/39 L 06/08/20 14:21 Pulse Ox 100 06/08/20 11:44 - Orders/Labs/Meds Orders: Active Orders 24 hr Category Date Time Status EKG 12 Lead [EKG Documentation Completion] [RC] STAT Care 06/08/20 11:28 Active Insert Reyes Catheter [Insert Urinary Catheter] [OM.PC] Care 06/08/20 12:00 Ordered Q24H Notify Provider [RC] PRN Care 06/08/20 12:28 Active Peripheral IV Care [RC] . DIRECTED Care 06/08/20 11:29 Active Peripheral IV Care [RC] . DIRECTED Care 06/08/20 12:37 Active Urinary Catheter Assessment [RC] ASDIRECTED Care 06/08/20 14:20 Active Verify Patient Consent Obtain [RC] ASDIRECTED Care 06/08/20 12:24 Active CULTURE BLOOD [BC] Stat Lab 06/08/20 11:40 Received CULTURE BLOOD [] Stat Lab 06/08/20 11:47 Received CULTURE STREP A CONFIRMATION [] Stat Lab 06/08/20 11:37 Results CULTURE URINE [] Stat Lab 06/08/20 12:06 Received STREP SCRN A RAPID W CULT CONF [] Stat Lab 06/08/20 11:37 Results Norepinephrine [Levophed] 4 mg Med 06/08/20 12:45 Active Dextrose 5% in Water 246 ml IV TITRATE Sodium Chloride 0.9% [Normal Saline] 1,000 ml Med 06/08/20 14:25 Active IV .BOLUS Sodium Chloride 0.9% [Saline Flush] Med 06/08/20 11:29 Active 10 ml FLUSH ASDIRECTED PRN Sodium Chloride 0.9% [Saline Flush] Med 06/08/20 12:37 Active 10 ml FLUSH ASDIRECTED PRN Blood Culture x2 Reflex Set [OM.PC] Stat Oth 06/08/20 11:27 Ordered Blood Transfusion Reflex Orders [OM.PC] Routine Oth 06/08/20 12:23 Ordered Isolation [COMM] Routine Oth 06/08/20 11:29 Active Peripheral IV Insertion Adult [OM.PC] Stat Oth 06/08/20 11:28 Ordered Peripheral IV Insertion Adult [OM.PC] Stat Oth 06/08/20 12:36 Ordered Transfuse Red Blood Cells [COMM] Stat Oth 06/08/20 12:23 Ordered Medication Orders Norepinephrine Bitartrate 4 mg (/ Dextrose/Water) 250 mls @ 22.5 mls/hr IV TITRATE SMITH; Protocol Last Titration: 06/08/20 13:30 Dose: 10 mcg/min, 37.5 mls/hr Documented by: Admin: 06/08/20 12:44 Dose: 6 mcg/min, 22.5 mls/hr Documented by: DIAN Sodium Chloride (Normal Saline) 1,000 mls @ 999 mls/hr IV .BOLUS ONE Stop: 06/08/20 15:25 Last Admin: 06/08/20 14:26 Dose: 999 mls/hr Documented by: Sodium Chloride (Saline Flush) 10 ml FLUSH ASDIRECTED PRN PRN Reason: Keep Vein Open Last Admin: 06/08/20 12:58 Dose: 10 ml Documented by: Admin: 06/08/20 11:52 Dose: 10 ml Documented by: DIAN Sodium Chloride (Saline Flush) 10 ml FLUSH ASDIRECTED PRN PRN Reason: Keep Vein Open Last Admin: 06/08/20 12:59 Dose: 10 ml Documented by: DIAN Labs: Laboratory Tests 06/08/20 06/08/20 06/08/20 Range/Units 11:37 11:40 11:40 WBC 23.9 H (5.0-10.0) 10^3/uL RBC 1.98 L (4.6-6.2) 10^6/uL Hgb 7.3 L D (14.0-18.0) g/dL Hct 19.9 L* (40.0-54.0) % MCV 100.5 H (80-100) fL MCH 36.9 H (27.0-34.0) pg MCHC 36.7 H (33.0-35.0) g/dL Plt Count 235 (150-450) 10^3/uL Neut % (Auto) 84.0 H (42.2-75.2) % Lymph % (Auto) 8.9 L (20.5-50.1) % [place] % (Auto) 5.4 (2-8) % Eos % (Auto) 1.6 (1.0-3.0) % Baso % (Auto) 0.1 (0.0-1.0) % Add Manual Diff Yes Neutrophils % (Manual) 87 H (42-75) % Band Neutrophils % 2 % Lymphocytes % (Manual) 6 L (20-50) % Monocytes % (Manual) 2 (2-8) % Eosinophils % (Manual) 3 (1-3) % Macrocytosis 1+ slight PT (9.0-12.0) SEC INR (0.9-1.2) APTT (22.0-34.0) SEC ABG pH (7.35-7.45) ABG pCO2 (35-45) mmHg ABG pO2 (70-100) mmHg ABG HCO3 (22-26) mmol/L ABG O2 Saturation (95-100) % ABG Base Excess ((-2)-(+3)) mmol/L Baljit Test O2 Delivery Device Oxygen Flow Rate Sodium 109 L* D (136-145) mmol/L Potassium 4.3 (3.5-5.1) mmol/L Chloride 72 L D (98-107) mmol/L Carbon Dioxide 18 L (21-32) mmol/L Anion Gap 23.3 H (7-13) mEq/L BUN 43 H D (7-18) mg/dL Creatinine 5.00 H* D (0.70-1.30) mg/dL Est Cr Clr Drug Dosing 24.47 mL/min Estimated GFR (MDRD) 14 BUN/Creatinine Ratio 8.6 (No establ ref range) Glucose 97 (74-99) mg/dL Lactic Acid (0.4-2.0) mmol/L Calcium 8.0 L (8.5-10.1) mg/dL Total Bilirubin 8.0 H (0.2-1.0) mg/dL AST 149 H (15-37) U/L ALT 26 (16-63) U/L Alkaline Phosphatase 121 H (46-116) U/L Creatine Kinase 447 H (39-308) U/L Troponin I 1.028 H* (0.000-0.056) ng/mL C-Reactive Protein 7.9 H (0.0-0.9) mg/dL B-Natriuretic Peptide 1110 H (0-100) pg/ml Total Protein 7.8 (6.4-8.2) g/dL Albumin 2.4 L (3.4-5.0) g/dL Globulin 5.4 Albumin/Globulin Ratio 0.44 Amylase 68 (25-115) U/L Lipase 328 (73-393) U/L Urine Color (YELLOW) Urine Appearance (CLEAR) Urine pH (5.0-9.0) Ur Specific [place] (1.005-1.030) Urine Protein (NEGATIVE) Urine Glucose (UA) (NEGATIVE) Urine Ketones (NEGATIVE) Urine Occult Blood (NEGATIVE) Urine Nitrite (NEGATIVE) Urine Bilirubin (NEGATIVE) Urine Urobilinogen (0.2-1.0) mg/dL Ur Leukocyte Esterase (NEGATIVE) Urine RBC /HPF Urine WBC (0-5/HPF) /HPF Ur Epithelial Cells (NOT SEEN) /HPF Amorphous Sediment (NOT SEEN) /HPF Urine Bacteria (0-FEW/HPF) /HPF Urine Mucus (NOT SEEN) /LPF Urinalysis Comment Urine Opiates Screen (NEGATIVE) Ur Oxycodone Screen (NEGATIVE) Urine Methadone Screen (NEGATIVE) Ur Barbiturates Screen (NEGATIVE) U Tricyclic Antidepress (NEGATIVE) Ur Phencyclidine Scrn (NEGATIVE) Ur Amphetamine Screen (NEGATIVE) U Methamphetamines Scrn (NEGATIVE) Urine MDMA Screen (NEGATIVE) U Benzodiazepines Scrn (NEGATIVE) Urine Cocaine Screen (NEGATIVE) U Marijuana (THC) Screen (NEGATIVE) Ethyl Alcohol 18 (0) mg/dL SARS-CoV-2 RNA (SUJEY) Negative (NEGATIVE) Blood Type Gel Antibody Screen Crossmatch 06/08/20 06/08/20 06/08/20 Range/Units 11:40 11:40 11:40 WBC (5.0-10.0) 10^3/uL RBC (4.6-6.2) 10^6/uL Hgb (14.0-18.0) g/dL Hct (40.0-54.0) % MCV (80-100) fL MCH (27.0-34.0) pg MCHC (33.0-35.0) g/dL Plt Count (150-450) 10^3/uL Neut % (Auto) (42.2-75.2) % Lymph % (Auto) (20.5-50.1) % [place] % (Auto) (2-8) % Eos % (Auto) (1.0-3.0) % Baso % (Auto) (0.0-1.0) % Add Manual Diff Neutrophils % (Manual) (42-75) % Band Neutrophils % % Lymphocytes % (Manual) (20-50) % Monocytes % (Manual) (2-8) % Eosinophils % (Manual) (1-3) % Macrocytosis PT 14.5 H (9.0-12.0) SEC INR 1.5 H (0.9-1.2) APTT 35.6 H (22.0-34.0) SEC ABG pH (7.35-7.45) ABG pCO2 (35-45) mmHg ABG pO2 (70-100) mmHg ABG HCO3 (22-26) mmol/L ABG O2 Saturation (95-100) % ABG Base Excess ((-2)-(+3)) mmol/L Baljit Test O2 Delivery Device Oxygen Flow Rate Sodium (136-145) mmol/L Potassium (3.5-5.1) mmol/L Chloride (98-107) mmol/L Carbon Dioxide (21-32) mmol/L Anion Gap (7-13) mEq/L BUN (7-18) mg/dL Creatinine (0.70-1.30) mg/dL Est Cr Clr Drug Dosing mL/min Estimated GFR (MDRD) BUN/Creatinine Ratio (No establ ref range) Glucose (74-99) mg/dL Lactic Acid 10.2 H* (0.4-2.0) mmol/L Calcium (8.5-10.1) mg/dL Total Bilirubin (0.2-1.0) mg/dL AST (15-37) U/L ALT (16-63) U/L Alkaline Phosphatase (46-116) U/L Creatine Kinase (39-308) U/L Troponin I (0.000-0.056) ng/mL C-Reactive Protein (0.0-0.9) mg/dL B-Natriuretic Peptide (0-100) pg/ml Total Protein (6.4-8.2) g/dL Albumin (3.4-5.0) g/dL Globulin Albumin/Globulin Ratio Amylase (25-115) U/L Lipase (73-393) U/L Urine Color (YELLOW) Urine Appearance (CLEAR) Urine pH (5.0-9.0) Ur Specific [place] (1.005-1.030) Urine Protein (NEGATIVE) Urine Glucose (UA) (NEGATIVE) Urine Ketones (NEGATIVE) Urine Occult Blood (NEGATIVE) Urine Nitrite (NEGATIVE) Urine Bilirubin (NEGATIVE) Urine Urobilinogen (0.2-1.0) mg/dL Ur Leukocyte Esterase (NEGATIVE) Urine RBC /HPF Urine WBC (0-5/HPF) /HPF Ur Epithelial Cells (NOT SEEN) /HPF Amorphous Sediment (NOT SEEN) /HPF Urine Bacteria (0-FEW/HPF) /HPF Urine Mucus (NOT SEEN) /LPF Urinalysis Comment Urine Opiates Screen (NEGATIVE) Ur Oxycodone Screen (NEGATIVE) Urine Methadone Screen (NEGATIVE) Ur Barbiturates Screen (NEGATIVE) U Tricyclic Antidepress (NEGATIVE) Ur Phencyclidine Scrn (NEGATIVE) Ur Amphetamine Screen (NEGATIVE) U Methamphetamines Scrn (NEGATIVE) Urine MDMA Screen (NEGATIVE) U Benzodiazepines Scrn (NEGATIVE) Urine Cocaine Screen (NEGATIVE) U Marijuana (THC) Screen (NEGATIVE) Ethyl Alcohol (0) mg/dL SARS-CoV-2 RNA (SUJEY) (NEGATIVE) Blood Type O POSITIVE Gel Antibody Screen Negative Crossmatch See Detail 06/08/20 06/08/20 06/08/20 Range/Units 12:06 12:06 12:55 WBC (5.0-10.0) 10^3/uL RBC (4.6-6.2) 10^6/uL Hgb (14.0-18.0) g/dL Hct (40.0-54.0) % MCV (80-100) fL MCH (27.0-34.0) pg MCHC (33.0-35.0) g/dL Plt Count (150-450) 10^3/uL Neut % (Auto) (42.2-75.2) % Lymph % (Auto) (20.5-50.1) % [place] % (Auto) (2-8) % Eos % (Auto) (1.0-3.0) % Baso % (Auto) (0.0-1.0) % Add Manual Diff Neutrophils % (Manual) (42-75) % Band Neutrophils % % Lymphocytes % (Manual) (20-50) % Monocytes % (Manual) (2-8) % Eosinophils % (Manual) (1-3) % Macrocytosis PT (9.0-12.0) SEC INR (0.9-1.2) APTT (22.0-34.0) SEC ABG pH 7.52 H (7.35-7.45) ABG pCO2 20 L (35-45) mmHg ABG pO2 83 (70-100) mmHg ABG HCO3 16.4 L (22-26) mmol/L ABG O2 Saturation 98 (95-100) % ABG Base Excess -6 L ((-2)-(+3)) mmol/L Baljit Test pos O2 Delivery Device Room air Oxygen Flow Rate 0 Sodium (136-145) mmol/L Potassium (3.5-5.1) mmol/L Chloride (98-107) mmol/L Carbon Dioxide (21-32) mmol/L Anion Gap (7-13) mEq/L BUN (7-18) mg/dL Creatinine (0.70-1.30) mg/dL Est Cr Clr Drug Dosing mL/min Estimated GFR (MDRD) BUN/Creatinine Ratio (No establ ref range) Glucose (74-99) mg/dL Lactic Acid (0.4-2.0) mmol/L Calcium (8.5-10.1) mg/dL Total Bilirubin (0.2-1.0) mg/dL AST (15-37) U/L ALT (16-63) U/L Alkaline Phosphatase (46-116) U/L Creatine Kinase (39-308) U/L Troponin I (0.000-0.056) ng/mL C-Reactive Protein (0.0-0.9) mg/dL B-Natriuretic Peptide (0-100) pg/ml Total Protein (6.4-8.2) g/dL Albumin (3.4-5.0) g/dL Globulin Albumin/Globulin Ratio Amylase (25-115) U/L Lipase (73-393) U/L Urine Color [place]isha (YELLOW) Urine Appearance Slightly cloudy (CLEAR) Urine pH 5.0 (5.0-9.0) Ur Specific [place] 1.020 (1.005-1.030) Urine Protein 100 H (NEGATIVE) Urine Glucose (UA) 100 H (NEGATIVE) Urine Ketones 15 H (NEGATIVE) Urine Occult Blood Trace-lysed H (NEGATIVE) Urine Nitrite Positive H (NEGATIVE) Urine Bilirubin Large H (NEGATIVE) Urine Urobilinogen 2.0 H (0.2-1.0) mg/dL Ur Leukocyte Esterase Negative (NEGATIVE) Urine RBC 0-5 /HPF Urine WBC 0-5 (0-5/HPF) /HPF Ur Epithelial Cells Occasional (NOT SEEN) /HPF Amorphous Sediment Many (NOT SEEN) /HPF Urine Bacteria Occasional (0-FEW/HPF) /HPF Urine Mucus Rare (NOT SEEN) /LPF Urinalysis Comment Urine Opiates Screen Negative (NEGATIVE) Ur Oxycodone Screen Negative (NEGATIVE) Urine Methadone Screen Negative (NEGATIVE) Ur Barbiturates Screen Negative (NEGATIVE) U Tricyclic Antidepress Negative (NEGATIVE) Ur Phencyclidine Scrn Negative (NEGATIVE) Ur Amphetamine Screen Negative (NEGATIVE) U Methamphetamines Scrn Negative (NEGATIVE) Urine MDMA Screen Negative (NEGATIVE) U Benzodiazepines Scrn Negative (NEGATIVE) Urine Cocaine Screen Negative (NEGATIVE) U Marijuana (THC) Screen Negative (NEGATIVE) Ethyl Alcohol (0) mg/dL SARS-CoV-2 RNA (SUJEY) (NEGATIVE) Blood Type Gel Antibody Screen Crossmatch Meds: Medications Generic Name Dose Route Start Last Admin Trade Name Freq PRN Reason Stop Dose Admin Norepinephrine Bitartrate 4 mg 250 mls @ 22.5 mls/hr 06/08/20 12:45 06/08/20 14:24 / Dextrose/Water IV 12 mcg/min TITRATE SMITH 45 mls/hr Titration Protocol 6 MCG/MIN Sodium Chloride 1,000 mls @ 999 mls/hr 06/08/20 14:25 06/08/20 14:26 Normal Saline IV 06/08/20 15:25 999 mls/hr .BOLUS ONE Administration Sodium Chloride 10 ml 06/08/20 11:29 06/08/20 12:58 Saline Flush FLUSH 10 ml ASDIRECTED PRN Administration Keep Vein Open Sodium Chloride 10 ml 06/08/20 12:37 06/08/20 12:59 Saline Flush FLUSH 10 ml ASDIRECTED PRN Administration Keep Vein Open Discontinued Medications Generic Name Dose Route Start Last Admin Trade Name Freq PRN Reason Stop Dose Admin Furosemide 40 mg 06/08/20 12:23 06/08/20 12:41 Lasix IV 06/08/20 12:24 40 mg NOW ONE Administration Sodium Chloride 1,000 mls @ 999 mls/hr 06/08/20 11:51 06/08/20 11:52 Normal Saline IV 06/08/20 12:51 999 mls/hr .BOLUS ONE Administration Sodium Chloride 1,000 mls @ 999 mls/hr 06/08/20 12:36 06/08/20 12:49 Normal Saline IV 06/08/20 13:36 999 mls/hr .BOLUS ONE Administration Vancomycin HCl 1.5 gm/ Premix 300 mls @ 200 mls/hr 06/08/20 13:00 06/08/20 12:53 IV 06/08/20 14:29 200 mls/hr ONETIME ONE Administration Piperacillin Sod/Tazobactam 100 mls @ 200 mls/hr 06/08/20 13:19 06/08/20 13:29 Sod 3.375 gm/ Sodium Chloride IV 06/08/20 13:48 200 mls/hr ONETIME ONE Administration Ondansetron HCl 4 mg 06/08/20 13:16 06/08/20 13:20 Zofran IVPUSH 06/08/20 13:17 4 mg ONETIME ONE Administration - Radiology Interpretation Free Text/Narrative:: [facility] Final Radiology Report Call: [phone] assistance Online chat: [email or web address] Name: KIRT FERNANDO Age: 25Years M Date: 06/08/2020 SSN: -- : 1995 Study: CR CHEST 1V FRONTAL Requesting Physician: TRAM MALONEY Images: 1 Addl Studies: Provided Clinical History: cough, edema, Hx of MS Contrast: Contrast Medium: Contrast Amount: Contrast Method: CONFIDENTIALITY STATEMENT This report is intended only for use by the referring physician, and only in accordance with law. If you received this in error, call [phone]. Page 1 of 1 PROCEDURE INFORMATION: Exam: XR Chest, 1 View Exam date and time: 06/08/2020 11:48 AM Age: 25 years old Clinical indication: Other: Cough, edema, HX of ms TECHNIQUE: Imaging protocol: XR of the chest Views: 1 view. COMPARISON: CR Chest 2V 05/11/2019 2:41 PM FINDINGS: Lungs: Unremarkable. No consolidation. Pleural space: Unremarkable. No pleural effusion. No pneumothorax. Heart/Mediastinum: Unremarkable. No cardiomegaly. Bones/joints: Unremarkable. IMPRESSION: No evidence for acute pulmonary disease on this portable exam. Thank you for allowing us to participate in the care of your patient. Dictated and Authenticated by: Neto Locke MD 06/08/2020 11:59 AM Central Time ([place] & [place]) Departure - Departure Time of Disposition: 14:44 Disposition: DC/Tfer to [facility] 02 Condition: Critical Clinical Impression: Acute kidney injury, Biliary obstruction, Elevated troponin, Hyponatremia, Severe anemia, Hx of multiple sclerosis, Alcohol abuse Sepsis Qualifiers: Sepsis type: sepsis due to unspecified organism Sepsis acute organ dysfunction status: with acute organ dysfunction Severe sepsis acute organ dysfunction type: acute renal failure Acute renal failure type: unspecified Severe sepsis shock status: with septic shock Qualified Code(s): A41.9 - Sepsis, unspecified organism; R65.21 - Severe sepsis with septic shock; N17.9 - Acute kidney failure, unspecified Urinary tract infection Qualifiers: Urinary tract infection type: acute pyelonephritis Qualified Code(s): N10 - Acute pyelonephritis - Discharge Information *PRESCRIPTION DRUG MONITORING PROGRAM REVIEWED*: Not Applicable *COPY OF PRESCRIPTION DRUG MONITORING REPORT IN PATIENT KIRSTEN: Not Applicable Forms: ED Department Discharge, Interfacility Transfer EMTALA Sepsis Event Note (ED) - Focused Exam Vital Signs: Vital Signs Temp Temp Pulse Resp BP Pulse Ox 06/08/20 14:21 97.9 F 104 H 25 H 86/39 L 06/08/20 14:06 98.1 F 100 26 H 93/28 L 06/08/20 14:04 98.1 F 100 26 H 70/47 L 06/08/20 13:31 97.5 F 06/08/20 13:06 97.2 F 101 H 33 H 100/20 L 06/08/20 12:51 97.4 F 96 38 H 70/41 L 06/08/20 11:44 98.4 F 93 30 H 78/30 L 100 - My Orders Last 24 Hours: My Active Orders 06/08/20 11:27 Blood Culture x2 Reflex Set [OM.PC] Stat 06/08/20 11:28 EKG 12 Lead [EKG Documentation Completion] [RC] STAT Peripheral IV Insertion Adult [OM.PC] Stat 06/08/20 11:29 Peripheral IV Care [RC] . DIRECTED Sodium Chloride 0.9% [Saline Flush] 10 ml FLUSH ASDIRECTED PRN Isolation [COMM] Routine 06/08/20 11:37 CULTURE STREP A CONFIRMATION [RM] Stat STREP SCRN A RAPID W CULT CONF [RM] Stat 06/08/20 11:40 CULTURE BLOOD [BC] Stat 06/08/20 11:47 CULTURE BLOOD [BC] Stat 06/08/20 12:00 Insert Reyes Catheter [Insert Urinary Catheter] [OM.PC] Q24H 06/08/20 12:06 CULTURE URINE [RM] Stat 06/08/20 12:23 Blood Transfusion Reflex Orders [OM.PC] Routine Transfuse Red Blood Cells [COMM] Stat 06/08/20 12:24 Verify Patient Consent Obtain [RC] ASDIRECTED 06/08/20 12:28 Notify Provider [RC] PRN 06/08/20 12:36 Peripheral IV Insertion Adult [OM.PC] Stat 06/08/20 12:37 Peripheral IV Care [RC] . DIRECTED Sodium Chloride 0.9% [Saline Flush] 10 ml FLUSH ASDIRECTED PRN 06/08/20 12:45 Norepinephrine [Levophed] 4 mg Dextrose 5% in Water 246 ml IV TITRATE 06/08/20 14:20 Urinary Catheter Assessment [RC] ASDIRECTED 06/08/20 14:25 Sodium Chloride 0.9% [Normal Saline] 1,000 ml IV .BOLUS - Assessment/Plan Last 24 Hours: My Active Orders 06/08/20 11:27 Blood Culture x2 Reflex Set [OM.PC] Stat 06/08/20 11:28 EKG 12 Lead [EKG Documentation Completion] [RC] STAT Peripheral IV Insertion Adult [OM.PC] Stat 06/08/20 11:29 Peripheral IV Care [RC] . DIRECTED Sodium Chloride 0.9% [Saline Flush] 10 ml FLUSH ASDIRECTED PRN Isolation [COMM] Routine 06/08/20 11:37 CULTURE STREP A CONFIRMATION [] Stat STREP SCRN A RAPID W CULT CONF [RM] Stat 06/08/20 11:40 CULTURE BLOOD [BC] Stat 06/08/20 11:47 CULTURE BLOOD [BC] Stat 06/08/20 12:00 Insert Reyes Catheter [Insert Urinary Catheter] [OM.PC] Q24H 06/08/20 12:06 CULTURE URINE [RM] Stat 06/08/20 12:23 Blood Transfusion Reflex Orders [OM.PC] Routine Transfuse Red Blood Cells [COMM] Stat 06/08/20 12:24 Verify Patient Consent Obtain [RC] ASDIRECTED 06/08/20 12:28 Notify Provider [RC] PRN 06/08/20 12:36 Peripheral IV Insertion Adult [OM.PC] Stat 06/08/20 12:37 Peripheral IV Care [RC] . DIRECTED Sodium Chloride 0.9% [Saline Flush] 10 ml FLUSH ASDIRECTED PRN 06/08/20 12:45 Norepinephrine [Levophed] 4 mg Dextrose 5% in Water 246 ml IV TITRATE 06/08/20 14:20 Urinary Catheter Assessment [RC] ASDIRECTED 06/08/20 14:25 Sodium Chloride 0.9% [Normal Saline] 1,000 ml IV .BOLUS
[2020-06-08] MEDS ORDERED: Sodium Chloride 0.9% 1,000 ML IV ONE ×3 (11:51→14:25)
[2020-06-08] MEDS: Sodium Chloride 0.9% 10 ML Syringe FLUSH PRN ×2 (11:52→12:58)
--- NOTE | 2020-06-08 12:00 | CR ---
PROCEDURE INFORMATION: Exam: XR Chest, 1 View Exam date and time: 06/08/2020 11:48 AM Age: 25 years old Clinical indication: Other: Cough, edema, HX of ms TECHNIQUE: Imaging protocol: XR of the chest Views: 1 view. COMPARISON: CR Chest 2V 05/11/2019 2:41 PM FINDINGS: Lungs: Unremarkable. No consolidation. Pleural space: Unremarkable. No pleural effusion. No pneumothorax. Heart/Mediastinum: Unremarkable. No cardiomegaly. Bones/joints: Unremarkable. IMPRESSION: No evidence for acute pulmonary disease on this portable exam.
[2020-06-08 12:12] LABS: PTT,PARTIAL THROMBOPLSTIN TIME 35.6 SEC (22.0-34.0)
[2020-06-08 12:16] LABS: ANION GAP 23.3 mEq/L (7-13)
[2020-06-08] MEDS ORDERED: Furosemide 40 MG/4 ML VIAL IV ONE (12:23)
[2020-06-08] MEDS ORDERED: Sodium Chloride 0.9% 10 ML Syringe FLUSH PRN (12:37)
[2020-06-08] MEDS ORDERED: Norepinephrine 4 MG in Dextrose 5% in Water 246 ML IV SCH ×2 (12:45)
[2020-06-08 13:03] LABS: BASE EXCESS ARTERIAL -6 mmol/L ((-2)-(+3)); BICARBONATE,ARTERIAL 16.4 mmol/L (22-26); O2 DELIVERY DEVICE ROOM AIR; O2 SATURATION ARTERIAL 98 % (95-100); PCO2 ARTERIAL 20 mmHg (35-45); PO2 ARTERIAL 83 mmHg (70-100)
[2020-06-08 13:05] LABS: ALLEN TEST pos
[2020-06-08 13:06] LABS: O2 FLOW RATE 0
[2020-06-08] MEDS ORDERED: Ondansetron 4 MG/2 ML SDV IVPUSH ONE (13:16)
[2020-06-08] MEDS ORDERED: Piperacillin/Tazobactam 3.375 GM in Sodium Chloride 0.9% 100 ML IV ONE (13:19)
[2020-06-08 14:48] VITALS: BP 113/70; PULSE 103
== END 2020-06-08 14:56 ==
LOC: DL.ED 11:11
DX: A41.9 Sepsis, unspecified organism (principal); R65.21 Severe sepsis with septic shock; N17.9 Acute kidney failure, unspecified; N10 Acute pyelonephritis; G35 Multiple sclerosis; R77.8 Other specified abnormalities of plasma proteins; E87.1 Hypo-osmolality and hyponatremia; D64.9 Anemia, unspecified; K83.1 Obstruction of bile duct; Z20.822 Contact with and (suspected) exposure to COVID-19; I10 Essential (primary) hypertension; E66.9 Obesity, unspecified; Z68.41 Body mass index [BMI] 40.0-44.9, adult
CPT/HCPCS: 36415; 36430; 36600; 51702; 71045; 80053; 80305-QW; 80307; 81001; 82150; 82272; 82550; 82803; 83605; 83690; 83880; 84484; 85025; 85610; 85730; 86140; 86850; 86900; 86901; 86920; 86922; 87040; 87081; 87086; 87430; 87804; 93005; 93010; 96365; 96366; 96368; 96375; 99285; 99285-25; J1940; J2405; J2543; J3370; J7030; J7050; J7060; P9016; U0002